=== PATIENT | male | born 1935 | race Caucasian/White ===

== ENCOUNTER 2016-06-17 09:14 | Inpatient (IN) | payer MEDICARE, OTHER ==
[2016-06-17 10:44] LABS: Basophils % (A) 0 %; CH 29.6; Eosinophils # (A) 0.1 k/uL (0-0.7); Eosinophils % (A) 1 %; HDW 2.38; HGB 12.5 gm/dL (13.0-17.5); Luc # (Auto) 0.12; Luc % (Auto) 1; Lymphocytes # (A) 0.5 k/uL (1.0-4.8); Lymphocytes % (A) 5 %; MCH 31.3 pg (25.0-35.0); MCHC 33.7 g/dL (31.0-37.0); Mean Platelet Volume 8.3; Monocytes # (A) 0.5 k/uL (0-1.0); Monocytes % (A) 6 %; Neutrophils % (A) 87 %; RBC 3.98 m/uL (4.30-5.90); WBC 9.2 k/uL (3.8-10.6); WBC (Perox) 9.54
--- NOTE | 2016-06-17 10:54 | XR ---
EXAMINATION TYPE: XR chest 2V DATE OF EXAM: 06/17/2016 10:46 AM COMPARISON: NONE INDICATION: None TECHNIQUE: Single frontal view of the chest is obtained. FINDINGS: The heart size is normal. The pulmonary vasculature is normal. The lungs are clear. A right central venous catheter is present with the tip in the proximal right atrium. EKG leads overl ie the chest IMPRESSION: 1. No acute pulmonary process. 2. No pneumothorax post line placement, tip is in the proximal right atrium.
[2016-06-17 10:55] LABS: ALT 43 U/L (21-72); AST 30 U/L (17-59); Alkaline Phosphatase 60 U/L (38-126); Anion Gap 11 mmol/L; Blood Urea Nitrogen 21 mg/dL (9-20); Calcium 8.3 mg/dL (8.4-10.2); Carbon Dioxide 25 mmol/L (22-30); Chloride 108 mmol/L (98-107); Glucose 104 mg/dL (74-99); Non-African American GFR(MDRD) 53 (>60 ml/min/1.73 sqM); Potassium 4.4 mmol/L (3.5-5.1); Sodium 144 mmol/L (137-145); Total Bilirubin 0.4 mg/dL (0.2-1.3); Total Protein 5.1 g/dL (6.3-8.2)
[2016-06-17 11:00] LABS: INR 1.1 (<1.1); Partial Thromboplastin Time 23.2 sec (22.0-30.0); Prothrombin Time 11.1 sec (9.0-12.0)
[2016-06-17 11:10] LABS: VBG PH 7.42 (7.31-7.41)
[2016-06-17 11:19] LABS: Creatine Kinase MB 2.4 ng/mL (0.0-2.4); Troponin I 0.013 ng/mL (0.000-0.034)
[2016-06-17] MEDS ORDERED: RX INFO: IV CONTRAST WAS GIVEN 1 EACH MISC MISCELLANE PRN (12:23)
[2016-06-17] MEDS ORDERED: OSELTAMIVIR 75 MG CAP PO STA (13:02)
--- NOTE | 2016-06-17 13:26 | CT ---
EXAMINATION TYPE: CT angio chest DATE OF EXAM: 06/17/2016 1:00 PM COMPARISON: NONE HISTORY: cough and congestion CT DLP: 623.5 mGycm Automated exposure control for dose reduction was used. CONTRAST: CTA scan of the thorax is performed with IV Contrast, patient injected with 87 mL of Visipaque 320, p ulmonary embolism protocol. . FINDINGS: The lungs are clear. There is no significant axillary, mediastinal or hilar adenopathy. The contrast bolus is poor. There are no large pulmonary emboli. The aortic root is mildly prominent measuring 39 mm. At the level of the proximal arch, the aorta catalina sures 3.3 cm. At the level of the proximal descending thoracic aorta, the aorta measures 3.4 cm. At t he level of the aortic hiatus, the aorta measures 2.9 cm. There is no pleural or pericardial fluid. The heart is not enlarged. Within the abdomen, there is a low attenuating 6.7 cm mass arising in the upper pole of the right kid neys. This likely represents a cyst. No osseous destructive lesion is seen. IMPRESSION: 1. SUBOPTIMAL STUDY DEMONSTRATING NO LARGE PULMONARY EMBOLI. 2. THORACIC AORTIC ANEURYSM. 3. LARGE MASS ARISING FROM THE UPPER POLE OF THE RIGHT KIDNEY. THIS LIKELY REPRESENTS A CYST. THIS CO ULD BE CONFIRMED WITH ULTRASOUND.
--- NOTE | 2016-06-17 13:35 | ED ---
General Adult HPI - General Chief complaint: Recheck/Abnormal Lab/Rx Stated complaint: sent by [employer] Time Seen by Provider: 06/17/16 09:37 Source: patient Mode of arrival: ambulatory Limitations: no limitations - History of Present Illness Initial comments: Percent has been coughing quite hard for the last few days in his oxygen saturation was low today [facility] and they noticed that his oxygen saturation was low they sent him over here. While talking in detail he also reveals that he has a chest pain does not very high pain is only 1-2/10 chest pain gets worse with a deep breaths. Denies any fever no chills he does have a history of heart disease he had GA in the past denies any stents and CABG also has a history of TIAs - Related Data Home Medications Medication Instructions Recorded Confirmed Atorvastatin [Lipitor] 40 mg PO HS 06/17/16 06/17/16 Clopidogrel Bisulfate [Plavix] 75 mg PO DAILY 06/17/16 06/17/16 Fenofibrate Nanocrystallized 48 mg PO DAILY 06/17/16 06/17/16 [Fenofibrate] Furosemide [Lasix] 40 mg PO DAILY 06/17/16 06/17/16 Labetalol [Trandate] 200 mg PO BID 06/17/16 06/17/16 Levothyroxine Sodium [Synthroid] 100 mcg PO DAILY 06/17/16 06/17/16 Lisinopril [Zestril] 20 mg PO DAILY 06/17/16 06/17/16 Naproxen Sodium [Aleve] 440 mg PO DAILY PRN 06/17/16 06/17/16 Pantoprazole [Protonix] 40 mg PO DAILY 06/17/16 06/17/16 amLODIPine [Norvasc] 5 mg PO DAILY 06/17/16 06/17/16 predniSONE 20 mg PO DAILY 06/17/16 06/17/16 Allergies Allergy/AdvReac Type Severity Reaction Status Date / Time pneumococcal vaccine AdvReac Swelling Verified 06/17/16 09:59 Review of Systems ROS Statement: Those systems with pertinent positive or pertinent negative responses have been documented in the HPI. ROS Other: All systems not noted in ROS Statement are negative. Past Medical History Past Medical History: Cancer, COPD, CVA/TIA, Hearing Disorder / Deafness, Hyperlipidemia, Hypertension, Myocardial Infarction (GA), Thyroid Disorder Additional Past Medical History / Comment(s): lymphoma, hydrocephalus History of Any Multi-Drug Resistant Organisms: None Reported Past Surgical History: Hernia Repair Additional Past Surgical History / Comment(s): [employer] shunt Past Psychological History: No Psychological Hx Reported Smoking Status: Former smoker Past Alcohol Use History: Occasional Past Drug Use History: None Reported General Exam - General Exam Comments Initial Comments: General: The patient is awake and alert, in no distress, and does not appear acutely ill. Skin: Skin is warm and dry and no rashes or lesions are noted. Eye: Pupils are equal, round and reactive to light, extra-ocular movements are intact; there is normal conjunctiva bilaterally. Ears, nose, mouth and throat: There are moist mucous membranes and no oral lesions. Neck: The neck is supple, there is no tenderness or JVD. Cardiovascular: There is a regular rate and rhythm. No murmur, rub or gallop is appreciated. Respiratory: To auscultation bilateral, crackles at the bases Gastrointestinal: Soft, non-distended, non-tender abdomen without masses or organomegaly noted. There is no rebound or guarding present. Bowel sounds are unremarkable. Back: There is no tenderness to palpation in the midline. There is no obvious deformity. Musculoskeletal: Normal ROM, no tenderness, There is no pedal edema. There is no calf tenderness or swelling. No cords were appreciated. Neurological: CN II-XII intact, Cranial nerves III through XII are intact. There are no obvious motor or sensory deficits. Coordination appears grossly intact. Speech is normal. Psychiatric: Cooperative, appropriate mood & affect, normal judgment. Limitations: no limitations Course Vital Signs 06/17/16 06/17/16 06/17/16 09:18 11:10 12:30 Temperature 97.7 F Pulse Rate 76 83 65 Respiratory 20 18 18 Rate Blood Pressure 140/64 151/88 153/69 O2 Sat by Pulse 93 L 95 95 Oximetry 06/17/16 13:00 Temperature Pulse Rate 74 Respiratory 18 Rate Blood Pressure 153/69 O2 Sat by Pulse Oximetry EKG Findings - EKG Comments: EKG Findings:: EKG is normal sinus rhythm ventricular rate is 70 MD interval is 172 QRS duration is 86 QT/QTc is 432/466 review of this EKG did not reveal any ST elevation or ST depression Medical Decision Making - Lab Data Result diagrams: 06/17/16 09:40 06/17/16 09:40 Lab Results 06/17/16 06/17/16 06/17/16 Range/Units 09:40 09:40 09:40 WBC 9.2 (3.8-10.6) k/uL RBC 3.98 L (4.30-5.90) m/uL Hgb 12.5 L (13.0-17.5) gm/dL Hct 37.0 L (39.0-53.0) % MCV 93.0 (80.0-100.0) fL MCH 31.3 (25.0-35.0) pg MCHC 33.7 (31.0-37.0) g/dL RDW 14.0 (11.5-15.5) % Plt Count 218 (150-450) k/uL Neutrophils % 87 % Lymphocytes % 5 % Monocytes % 6 % Eosinophils % 1 % Basophils % 0 % Neutrophils # 8.0 H (1.3-7.7) k/uL Lymphocytes # 0.5 L (1.0-4.8) k/uL Monocytes # 0.5 (0-1.0) k/uL Eosinophils # 0.1 (0-0.7) k/uL Basophils # 0.0 (0-0.2) k/uL PT (9.0-12.0) sec INR (<1.1) APTT (22.0-30.0) sec VBG pH (7.31-7.41) VBG pCO2 (37-51) mmHg VBG HCO3 (24-28) mmol/L Sodium 144 (137-145) mmol/L Potassium 4.4 (3.5-5.1) mmol/L Chloride 108 H (98-107) mmol/L Carbon Dioxide 25 (22-30) mmol/L Anion Gap 11 mmol/L BUN 21 H (9-20) mg/dL Creatinine 1.30 H (0.66-1.25) mg/dL Est GFR (MDRD) Af Amer >60 (>60 ml/min/1.73 sqM) Est GFR (MDRD) Non-Af 53 (>60 ml/min/1.73 sqM) Glucose 104 H (74-99) mg/dL Calcium 8.3 L (8.4-10.2) mg/dL Total Bilirubin 0.4 (0.2-1.3) mg/dL AST 30 (17-59) U/L ALT 43 (21-72) U/L Alkaline Phosphatase 60 (38-126) U/L Total Creatine Kinase 219 H (55-170) U/L CK-MB (CK-2) 2.4 (0.0-2.4) ng/mL CK-MB (CK-2) Rel Index 1.1 Troponin I 0.013 (0.000-0.034) ng/mL NT-Pro-B Natriuret Pep pg/mL Total Protein 5.1 L (6.3-8.2) g/dL Albumin 3.1 L (3.5-5.0) g/dL Influenza Type A RNA (Not Detectd) Influenza Type B (PCR) (Not Detectd) 06/17/16 06/17/16 06/17/16 Range/Units 09:40 09:40 11:00 WBC (3.8-10.6) k/uL RBC (4.30-5.90) m/uL Hgb (13.0-17.5) gm/dL Hct (39.0-53.0) % MCV (80.0-100.0) fL MCH (25.0-35.0) pg MCHC (31.0-37.0) g/dL RDW (11.5-15.5) % Plt Count (150-450) k/uL Neutrophils % % Lymphocytes % % Monocytes % % Eosinophils % % Basophils % % Neutrophils # (1.3-7.7) k/uL Lymphocytes # (1.0-4.8) k/uL Monocytes # (0-1.0) k/uL Eosinophils # (0-0.7) k/uL Basophils # (0-0.2) k/uL PT 11.1 (9.0-12.0) sec INR 1.1 (<1.1) APTT 23.2 (22.0-30.0) sec VBG pH 7.42 H (7.31-7.41) VBG pCO2 40 (37-51) mmHg VBG HCO3 25 (24-28) mmol/L Sodium (137-145) mmol/L Potassium (3.5-5.1) mmol/L Chloride (98-107) mmol/L Carbon Dioxide (22-30) mmol/L Anion Gap mmol/L BUN (9-20) mg/dL Creatinine (0.66-1.25) mg/dL Est GFR (MDRD) Af Amer (>60 ml/min/1.73 sqM) Est GFR (MDRD) Non-Af (>60 ml/min/1.73 sqM) Glucose (74-99) mg/dL Calcium (8.4-10.2) mg/dL Total Bilirubin (0.2-1.3) mg/dL AST (17-59) U/L ALT (21-72) U/L Alkaline Phosphatase (38-126) U/L Total Creatine Kinase (55-170) U/L CK-MB (CK-2) (0.0-2.4) ng/mL CK-MB (CK-2) Rel Index Troponin I (0.000-0.034) ng/mL NT-Pro-B Natriuret Pep 2780 pg/mL Total Protein (6.3-8.2) g/dL Albumin (3.5-5.0) g/dL Influenza Type A RNA (Not Detectd) Influenza Type B (PCR) (Not Detectd) 06/17/16 Range/Units 12:26 WBC (3.8-10.6) k/uL RBC (4.30-5.90) m/uL Hgb (13.0-17.5) gm/dL Hct (39.0-53.0) % MCV (80.0-100.0) fL MCH (25.0-35.0) pg MCHC (31.0-37.0) g/dL RDW (11.5-15.5) % Plt Count (150-450) k/uL Neutrophils % % Lymphocytes % % Monocytes % % Eosinophils % % Basophils % % Neutrophils # (1.3-7.7) k/uL Lymphocytes # (1.0-4.8) k/uL Monocytes # (0-1.0) k/uL Eosinophils # (0-0.7) k/uL Basophils # (0-0.2) k/uL PT (9.0-12.0) sec INR (<1.1) APTT (22.0-30.0) sec VBG pH (7.31-7.41) VBG pCO2 (37-51) mmHg VBG HCO3 (24-28) mmol/L Sodium (137-145) mmol/L Potassium (3.5-5.1) mmol/L Chloride (98-107) mmol/L Carbon Dioxide (22-30) mmol/L Anion Gap mmol/L BUN (9-20) mg/dL Creatinine (0.66-1.25) mg/dL Est GFR (MDRD) Af Amer (>60 ml/min/1.73 sqM) Est GFR (MDRD) Non-Af (>60 ml/min/1.73 sqM) Glucose (74-99) mg/dL Calcium (8.4-10.2) mg/dL Total Bilirubin (0.2-1.3) mg/dL AST (17-59) U/L ALT (21-72) U/L Alkaline Phosphatase (38-126) U/L Total Creatine Kinase (55-170) U/L CK-MB (CK-2) (0.0-2.4) ng/mL CK-MB (CK-2) Rel Index Troponin I (0.000-0.034) ng/mL NT-Pro-B Natriuret Pep pg/mL Total Protein (6.3-8.2) g/dL Albumin (3.5-5.0) g/dL Influenza Type A RNA Detected H (Not Detectd) Influenza Type B (PCR) Not Detected (Not Detectd) Critical Care Time Total Critical Care Time: 45 Critical Care Time: Was sent in for the hypoxia, his of fluids positive also complaining about chest pain and CT angiogram was done to rule out any PE though she can't do his noticed a thoracic aortic aneurysm that slammed will hold off the heparinization she also has a renal mass considering his chest pain is hypoxia flu a month and admitted him with a cardiology consult under Dr. Ospina service for heparinization [facility] because of the thoracic aortic aneurysm Disposition Clinical Impression: Chest pain, Influenza, Hypoxia, Renal mass, Thoracic aortic aneurysm Disposition: ADMITTED IP TO THIS HOSP Condition: Fair
[2016-06-17] MEDS ORDERED: ONDANSETRON 4 MG/2 ML VIAL IVP PRN (13:39)
[2016-06-17] MEDS ORDERED: NALOXONE 0.4 MG/ML 1 ML VIAL IV PRN (13:39)
[2016-06-17] MEDS ORDERED: ACETAMINOPHEN TAB 325 MG TAB PO PRN (13:39)
[2016-06-17] MEDS ORDERED: NAPROXEN 250 MG TAB PO PRN (13:45)
[2016-06-17] MEDS ORDERED: IPRATROPIUM-ALBUTEROL 3 ML NEB INHALATION PRN (16:07)
[2016-06-17] MEDS: SODIUM CHLORIDE 0.9% 1,000 ML IV SCH (17:56)
[2016-06-17] MEDS: IPRATROPIUM-ALBUTEROL 3 ML NEB INHALATION SCH (21:09)
[2016-06-17] MEDS: BENZOCAINE/MENTHOL LOZENG 1 EACH LOZENGE MUCOUS MEM PRN (21:39)
[2016-06-17] MEDS: guaiFENesin SYRUP 100MG/5ML 200 MG/10 ML CUP PO PRN (21:39)
[2016-06-17] MEDS: OSELTAMIVIR 60 MG/10 ML ORAL SYRINGE PO SCH (21:40)
[2016-06-17] MEDS: ATORVASTATIN 40 MG TAB PO SCH (21:40)
[2016-06-17] MEDS: LABETALOL 200 MG TAB PO SCH (21:40)
[2016-06-17] MEDS: DOXYCYCLINE 50 MG CAP PO SCH (21:40)
--- NOTE | 2016-06-18 | HP ---
DATE OF ADMISSION: 06/17/2016 This is an 80 -year-old gentleman with history of COPD, remote history of smoking, came in with complaints of coughing and shortness of breath which started yesterday. All the time, most of the time, ( ) had a flu like illness, comes in with similar symptoms, seen in agent care, was found to have low oxygen saturations. Patient has audible wheezing on exam because of which patient came to the hospital and the patient was found to have ( ) infection. Patient is wheezing quite a bit which actually saturations going down and patient is tachypneic and excessively tachypneic on 3 L of oxygen. The patient denied any fever, chills. The patient complaining of ( ) like sputum production. Patient denied history of myocardial infarction in the past with stent to ( ) in the past. Patient has chest pain whenever he cough. Troponins are negative. EKG did not show any acute ST-T wave changes. Home medications: 1. Atorvastatin. 2. Plavix. 3. Fenofibrate. 4. Lasix. 5. Labetalol. 6. Levothyroxine. 7. Lisinopril. 8. Naproxen. 9. Pantoprazole. 10. Amlodipine. 11. ( ). ALLERGIES: PNEUMOCOCCAL VACCINE. REVIEW OF SYSTEMS: CONSTITUTIONAL: As described in history of present illness. HEENT: No recent visual problems or hearing problems. Denied any sore throat. CARDIOVASCULAR: No chest pain, orthopnea, PND, no palpitations, no syncope. PULMONARY: As described in history of present illness. GASTROINTESTINAL: No diarrhea, no nausea, no vomiting, no abdominal pain. Normoactive bowel sounds. NEUROLOGICAL: No headaches, no weakness, no numbness. HEMATOLOGICAL: Denies any bleeding or petechiae. GENITOURINARY: Denies any burning micturition, frequency, or urgency. MUSCULOSKELETAL/RHEUMATOLOGICAL: Denies any joint pain, swelling, or any muscle pain. ENDOCRINE: Denies any polyuria or polydipsia. The rest of the 14 point review of systems is negative. PAST MEDICAL HISTORY: Significant for lymphoma in the past, COPD, CVA/TIA, hyperlipidemia, hypertension, myocardial infarction, hypothyroidism, hernia repair in the past. SOCIAL HISTORY: Former smoker. Denied any alcohol abuse or any drug abuse. FAMILY HISTORY: Hypertension in the family. PHYSICAL EXAMINATION: VITAL SIGNS: Temperature 97.7, pulse of 65, respiratory rate 18, blood pressure ( ), saturating at 95% on 3 L O2 by nasal cannula. GENERAL: Patient is alert and oriented ( ). Does have audible wheezing. ( ). HEENT: Pupils are round and equally reacting to light. EOMI. No scleral icterus. No conjunctival pallor. Normocephalic, atraumatic. No pharyngeal erythema. No thyromegaly. CARDIOVASCULAR: S1 and S2 present. No murmurs, rubs, or gallops. PULMONARY: Significant expiratory wheezing. Decreased air entry into bilateral lung colvin. No crackles were appreciated. Rhonchorous breath sounds. ABDOMEN: Soft, nontender, nondistended, normoactive bowel sounds. No palpable organomegaly. MUSCULOSKELETAL: No joint swelling or deformity. EXTREMITIES: No cyanosis, clubbing, or pedal edema. NEUROLOGICAL: Gross neurological examination did not reveal any focal deficits. SKIN: No rashes. LABORATORY DATA: CBC/BMP significant for elevated chloride because of probably IV fluids and elevated BUN and creatinine. I do not have his baseline creatinine. His creatinine presently is 1.3. Anion gap of 11, first set of troponins 0.013, secondary set of troponins were ordered. ( ) 2780. The patient has influenza A positive. ASSESSMENT AND PLAN: 1. ( ) secondary to Influenza A, the patient will be started on IV fluids. Patient was started on Tamiflu. 2. Acute hypercapnic respiratory failure, probably secondary to chronic obstructive pulmonary disease exacerbation. The patient will be started on inhalation treatment. Because of significant wheezing, I have to start him on steroids. Although ( ) high dose of steroids are not beneficial and there may be harmful in influenza. Because of that reason, I will go ahead and start him on oral prednisone and inhalational treatments. 3. Hypertension. Continue his home medications. 4. History of cerebrovascular accident/ transient ischemic attack in the past. 5. Hyperlipidemia. 6. Hypothyroidism. For the above-mentioned chronic medical problems, I will go ahead and continue his home medications. The patient does have gastroesophageal reflux disease for which we will use Protonix and patient will be on systemic steroids as mentioned above.
[2016-06-18] MEDS: SODIUM CHLORIDE 0.9% 1,000 ML IV SCH ×2 (02:25→11:27)
[2016-06-18] MEDS: guaiFENesin SYRUP 100MG/5ML 200 MG/10 ML CUP PO PRN ×3 (03:51→16:48)
[2016-06-18] MEDS: LEVOTHYROXINE 100 MCG TAB PO SCH (05:39)
[2016-06-18 06:56] LABS: Basophils % (A) 0 %; CHCM 30.9; Eosinophils % (A) 1 %; HCT 34.2 % (39.0-53.0); HGB 10.6 gm/dL (13.0-17.5); Hypochromasia Slight; Luc # (Auto) 0.19; Luc % (Auto) 3; Lymphocytes # (A) 0.6 k/uL (1.0-4.8); Lymphocytes % (A) 10 %; MCH 30.2 pg (25.0-35.0); MCV 97.6 fL (80.0-100.0); Mean Platelet Volume 8.1; Monocytes # (A) 0.5 k/uL (0-1.0); Monocytes % (A) 7 %; Neutrophils # (A) 5.3 k/uL (1.3-7.7); Neutrophils % (A) 80 %; RDW 14.3 % (11.5-15.5); WBC 6.6 k/uL (3.8-10.6); WBC (Perox) 7.17
[2016-06-18 07:16] LABS: ALT 43 U/L (21-72); AST 31 U/L (17-59); Alkaline Phosphatase 44 U/L (38-126); Anion Gap 6 mmol/L; Blood Urea Nitrogen 22 mg/dL (9-20); Calcium 7.5 mg/dL (8.4-10.2); Carbon Dioxide 26 mmol/L (22-30); Chloride 107 mmol/L (98-107); Glucose 92 mg/dL (74-99); Non-African American GFR(MDRD) >60 (>60 ml/min/1.73 sqM); Potassium 4.5 mmol/L (3.5-5.1); Sodium 139 mmol/L (137-145); Total Bilirubin 0.4 mg/dL (0.2-1.3); Total Protein 4.3 g/dL (6.3-8.2)
[2016-06-18] MEDS: IPRATROPIUM-ALBUTEROL 3 ML NEB INHALATION SCH ×4 (08:31→19:33)
[2016-06-18] MEDS ORDERED: predniSONE 20 MG TAB PO SCH (09:00)
[2016-06-18] MEDS: predniSONE 20 MG TAB PO SCH (09:10)
[2016-06-18] MEDS: CLOPIDOGREL 75 MG TAB PO SCH (09:10)
[2016-06-18] MEDS: DOXYCYCLINE 50 MG CAP PO SCH ×2 (09:10→20:45)
[2016-06-18] MEDS: LABETALOL 200 MG TAB PO SCH ×2 (09:10→20:45)
[2016-06-18] MEDS: PANTOPRAZOLE 40 MG TABLET PO SCH (09:10)
[2016-06-18] MEDS: amLODIPine 5 MG TAB PO SCH (09:10)
[2016-06-18] MEDS: LISINOPRIL 20 MG TAB PO SCH (09:10)
[2016-06-18] MEDS: FUROSEMIDE 40 MG TAB PO SCH (09:10)
[2016-06-18] MEDS: OSELTAMIVIR 60 MG/10 ML ORAL SYRINGE PO SCH ×2 (09:11→20:48)
[2016-06-18] MEDS: FENOFIBRATE 54 MG TAB PO SCH (09:11)
--- NOTE | 2016-06-18 11:13 | P.CRDCN ---
History of Present Illness Consult date: 06/18/16 Reason for Consult (text): chest pain Chief complaint: cough History of present illness: This is a pleasant 80-year-old gentleman with a known history of TIA 3, COPD, hypertension, hyperlipidemia and prior ID. He follows with a health workers from out of town, patient lives mostly in [facility] however comes to stay with his daughter frequently. He presented to the emergency department after being seen on urgent care with complaints of a cough. Apparently at urgent care physician noticed lower extremity edema and a low oxygen saturation. Cardiology was asked to see the patient in consult due to complaints of chest discomfort. Patient was having chest discomfort with coughing only. Patient did undergo CT of the chest to rule out PE that showed no PE, but was positive for a thoracic aortic aneurysm and also showed a large mass on his right kidney that is likely related to assist. Laboratory values are significant for BUN 22 , creatinine 1.08, BNP 2780, troponin 0.013, 0.014 and 0.016. Patient has also been found to be positive for influenza A. On examination, patient is resting comfortably in bed with his daughter at the bedside. Says he's feeling quite a bit better today, coughing less. He is breathing better. Denies complaints of dizziness, palpitations or edema. Past Medical History Past Medical History: Cancer, COPD, CVA/TIA, Hearing Disorder / Deafness, Hyperlipidemia, Hypertension, Myocardial Infarction (ID), Thyroid Disorder Additional Past Medical History / Comment(s): Lymphoma diagnosed 05/2015 and has had 6 chemotherapy txs, hydrocephalus, TIAs x3, silent ID/EKG, hypothyroid, AKIAK bilaterally, bilateral cataracts. Last Myocardial Infarction Date:: unkn History of Any Multi-Drug Resistant Organisms: None Reported Past Surgical History: Hernia Repair Additional Past Surgical History / Comment(s): [employer] shunt, bilateral inguinal hernia repairs, colonoscopy-normal. Past Anesthesia/Blood Transfusion Reactions: No Reported Reaction Past Psychological History: No Psychological Hx Reported Additional Psychological History / Comment(s): Pt resides with his spouse. He is independent. Smoking Status: Former smoker Past Alcohol Use History: Occasional Additional Past Alcohol Use History / Comment(s): Pt states he started smoking in 1952 and quit 20 some yrs ago. Past Drug Use History: None Reported - Past Family History Father Family Medical History: Liver Disease Mother Family Medical History: Cancer Additional Family Medical History / Comment(s): Mother had uterine cancer with sx. She at the age of 89yrs. Medications and Allergies Home Medications Medication Instructions Recorded Confirmed Type Atorvastatin [Lipitor] 40 mg PO HS 06/17/16 06/17/16 History Clopidogrel Bisulfate [Plavix] 75 mg PO DAILY 06/17/16 06/17/16 History Fenofibrate Nanocrystallized 48 mg PO DAILY 06/17/16 06/17/16 History [Fenofibrate] Furosemide [Lasix] 40 mg PO DAILY 06/17/16 06/17/16 History Labetalol [Trandate] 200 mg PO BID 06/17/16 06/17/16 History Levothyroxine Sodium [Synthroid] 100 mcg PO DAILY 06/17/16 06/17/16 History Lisinopril [Zestril] 20 mg PO DAILY 06/17/16 06/17/16 History Naproxen Sodium [Aleve] 440 mg PO DAILY PRN 06/17/16 06/17/16 History Pantoprazole [Protonix] 40 mg PO DAILY 06/17/16 06/17/16 History amLODIPine [Norvasc] 5 mg PO DAILY 06/17/16 06/17/16 History predniSONE 20 mg PO DAILY 06/17/16 06/17/16 History Allergies Allergy/AdvReac Type Severity Reaction Status Date / Time pneumococcal vaccine AdvReac Swelling Verified 06/17/16 09:59 Physical Exam Vitals: Vital Signs Temp Pulse Pulse Resp BP BP Pulse Ox 06/18/16 08:45 72 06/18/16 08:32 72 95 06/18/16 08:00 97.9 F 58 L 24 142/65 96 06/18/16 04:00 97.6 F 70 22 133/73 96 06/18/16 00:00 97.3 F L 75 18 160/72 96 06/17/16 21:25 79 06/17/16 21:11 79 98 06/17/16 20:00 97.3 F L 77 22 167/74 95 06/17/16 16:08 75 22 06/17/16 16:07 97.3 F L 75 22 179/77 95 06/17/16 15:40 98 F 06/17/16 14:00 75 18 175/75 96 Intake and Output 06/17/16 06/18/16 06/18/16 22:59 06:59 14:59 Intake Total 240 600 240 Output Total 675 Balance 240 -75 240 Intake: Oral 240 600 240 Output: Urine 675 Other: Voiding Method Toilet Toilet Toilet # Voids 2 Weight 107.1 kg PHYSICAL EXAMINATION: HEENT: Head is atraumatic, normocephalic. Pupils equal, round. Neck is supple. There is no elevated jugular venous pressure. HEART EXAMINATION: Heart sounds regular, S1 and S2 normal. No murmur or gallop heard. CHEST EXAMINATION: Lungs reveal expiratory wheezing throughout. No chest wall tenderness is noted on palpation or with deep breathing. ABDOMEN: Soft, obese, nontender. Bowel sounds are heard. No organomegaly noted. EXTREMITIES: 2+ peripheral pulses with no evidence of peripheral edema and no calf tenderness noted. NEUROLOGIC patient is awake, alert and oriented x3. . Results 06/18/16 06:11 06/18/16 06:11 Cardiac Enzymes 06/17/16 06/17/16 06/18/16 Range/Units 16:11 21:04 06:11 AST 31 (17-59) U/L Troponin I 0.014 0.016 (0.000-0.034) ng/mL CBC 06/18/16 Range/Units 06:11 WBC 6.6 (3.8-10.6) k/uL RBC 3.50 L (4.30-5.90) m/uL Hgb 10.6 L (13.0-17.5) gm/dL Hct 34.2 L (39.0-53.0) % Plt Count 172 (150-450) k/uL Comprehensive Metabolic Panel 06/18/16 Range/Units 06:11 Sodium 139 (137-145) mmol/L Potassium 4.5 (3.5-5.1) mmol/L Chloride 107 (98-107) mmol/L Carbon Dioxide 26 (22-30) mmol/L BUN 22 H (9-20) mg/dL Creatinine 1.08 (0.66-1.25) mg/dL Glucose 92 (74-99) mg/dL Calcium 7.5 L (8.4-10.2) mg/dL AST 31 (17-59) U/L ALT 43 (21-72) U/L Alkaline Phosphatase 44 (38-126) U/L Total Protein 4.3 L (6.3-8.2) g/dL Albumin 2.4 L (3.5-5.0) g/dL Current Medications Generic Name Dose Route Start Last Admin Trade Name Freq PRN Reason Stop Dose Admin Acetaminophen 650 mg 06/17/16 13:39 Tylenol Tab PO Q6HR PRN Mild Pain or Fever > 100.5 Albuterol/Ipratropium 3 ml 06/17/16 16:07 Duoneb 0.5 Mg-3 Mg/3 Ml Soln INHALATION RT-QID PRN Shortness Of Breath Or Wheezing Albuterol/Ipratropium 3 ml 06/17/16 20:00 06/18/16 08:31 Duoneb 0.5 Mg-3 Mg/3 Ml Soln INHALATION 3 ml RT-QID ANA Administration Amlodipine Besylate 5 mg 06/18/16 09:00 06/18/16 09:10 Norvasc PO 5 mg DAILY ANA Administration Atorvastatin Calcium 40 mg 06/17/16 21:00 06/17/16 21:40 Lipitor PO 40 mg HS ANA Administration Benzocaine/Menthol 1 each 06/17/16 19:00 06/17/16 21:39 Cepacol Lozenge MUCOUS MEM 1 each Q4HR PRN Administration Cough Clopidogrel Bisulfate 75 mg 06/18/16 09:00 06/18/16 09:10 Plavix PO 75 mg DAILY ANA Administration Doxycycline Monohydrate 100 mg 06/17/16 21:00 06/18/16 09:10 Vibramycin PO 100 mg BID ANA Administration Fenofibrate 54 mg 06/18/16 09:00 06/18/16 09:11 Lofibra PO 54 mg DAILY ANA Administration Furosemide 40 mg 06/18/16 09:00 06/18/16 09:10 Lasix PO 40 mg DAILY ANA Administration Guaifenesin 200 mg 06/17/16 19:00 06/18/16 10:07 Robitussin PO 200 mg Q6H PRN Administration Cough Sodium Chloride 1,000 mls @ 100 mls/hr 06/17/16 16:15 06/18/16 02:25 Saline 0.9% IV Not Given .Q10H ANA Labetalol HCl 200 mg 06/17/16 21:00 06/18/16 09:10 Trandate PO 200 mg BID ANA Administration Levothyroxine Sodium 100 mcg 06/18/16 06:30 06/18/16 05:39 Synthroid PO 100 mcg DAILY@0630 ANA Administration Lisinopril 20 mg 06/18/16 09:00 06/18/16 09:10 Zestril PO 20 mg DAILY ANA Administration Miscellaneous Information 1 each 06/17/16 12:23 06/17/16 13:08 Rx Info: Iv Contrast Was Given MISCELLANE 06/19/16 12:23 1 each DAILY PRN Administration Per Protocol Naloxone HCl 0.2 mg 06/17/16 13:39 Narcan IV Q2M PRN Opioid Reversal Ondansetron HCl 4 mg 06/17/16 13:39 Zofran IVP Q8HR PRN Nausea And Vomiting Oseltamivir Phosphate 30 mg 06/17/16 21:00 06/18/16 09:11 Tamiflu PO 06/21/16 21:01 30 mg Q12HR ANA Administration Pantoprazole Sodium 40 mg 06/18/16 09:00 06/18/16 09:10 Protonix PO 40 mg DAILY ANA Administration Prednisone 40 mg 06/18/16 09:00 06/18/16 09:10 PO 40 mg DAILY ANA Administration Intake and Output 06/17/16 06/18/16 06/18/16 22:59 06:59 14:59 Intake Total 240 600 240 Output Total 675 Balance 240 -75 240 Intake: Oral 240 600 240 Output: Urine 675 Other: Voiding Method Toilet Toilet Toilet # Voids 2 Weight 107.1 kg 06/18/16 06:11 06/18/16 06:11 EKG Interpretations (text) Sinus rhythm with prior inferior infarct Assessment and Plan Plan: Assessment and plan #1 influenza A #2 COPD #3 chest pain, likely musculoskeletal secondary to cough #4 hypertension #5 hyperlipidemia #6 prior ID #7 thoracic aortic aneurysm noted on chest CTA, max diameter 3.9 cm From cardiology perspective, we will obtain a 2-D echo. We will continue to follow the patient provide further recommendations accordingly. [facility] note has been reviewed, I agree with a documented findings and plan of care. Patient was seen and examined.
[2016-06-18] MEDS: BENZOCAINE/MENTHOL LOZENG 1 EACH LOZENGE MUCOUS MEM PRN (11:26)
--- NOTE | 2016-06-18 13:42 | PN ---
Patient is an 80-year-old admitted for COPD exacerbation. Patient also has influenza positive. Patient is still wheezing quite a bit. Patient will require maybe a couple more days of hospitalization and patient will need outpatient sleep study. REVIEW OF SYSTEMS: CARDIOVASCULAR: No chest pain, no orthopnea, no PND, no palpitations. PULMONARY: Denied any shortness of breath. No cough or hemoptysis. GASTROINTESTINAL: No diarrhea, nausea or vomiting. No abdominal pain. Normoactive bowel sounds. NEUROLOGIC: No headaches, no weakness, no numbness. Medications were reviewed. PHYSICAL EXAMINATION: Temperature 97.0, pulse of 72, respiratory rate of 22, blood pressure is 133/64, saturating at 96% on 2 L of O2 by nasal cannula. GENERAL EXAMINATION: Alert and oriented x3. Patient appears to be much lesser than stated age. LUNG EXAMINATION: Significant expiratory wheezing was appreciated, continued decreased air entry into bilateral lung colvin, although respiratory distress appears to have improved compared to yesterday. HEENT: Pupils are round and equally reacting to light. EOMI. No scleral icterus. No conjunctival pallor. Normocephalic, atraumatic. No pharyngeal erythema. No thyromegaly. CARDIOVASCULAR: S1 and S2 present. No murmurs, rubs, or gallops. ABDOMEN: Soft, nontender, nondistended, normoactive bowel sounds. No palpable organomegaly. MUSCULOSKELETAL: No joint swelling or deformity. EXTREMITIES: No cyanosis, clubbing, or pedal edema. NEUROLOGICAL: Gross neurological examination did not reveal any focal deficits. SKIN: No rashes. LABORATORY DATA: CBC, CMP showed improvement in creatinine to 1.8, BUN to 22. Continue with IV fluids at this point of time. CK is minimally elevated. ASSESSMENT AND PLAN: 1. Sepsis secondary to influenza A. Continue with Tamiflu. Continue with IV fluids as mentioned above. 2. Acute hypercapnic respiratory failure secondary to chronic obstructive pulmonary disease exacerbation. Continue with systemic steroids, inhalational treatments. Taper down on the oxygen. 3. Hypertension. 4. Cerebrovascular accident in the past. 5. Hyperlipidemia. 6. Hypothyroidism For above-mentioned chronic medical problems, I will go ahead and continue his home medications.
--- NOTE | 2016-06-18 14:44 | P.CNPUL ---
History of Present Illness Consult date: 06/18/16 Reason for consult: COPD History of present illness: A pleasant 80-year-old male patient with known history of COPD and addition to previous history of TIA/CVA, coronary artery disease with previous ME, hypertension and hyperlipidemia who started developing some increased cough chest congestion and shortness of breath and wheezing typically of COPD exacerbation. He is an ex-smoker. He uses only albuterol rescue inhaler on as needed basis and he does not utilize any form of maintenance medications. Denies having any previous bouts of pneumonias or bronchitis. This is his first hospitalization for an acute COPD exacerbation. Note that during this current admission the patient also check positive for influenza A. He is currently in respiratory droplet isolation. He is receiving Tamiflu. Is receiving bronchodilators and systemic steroids. CT angios the chest was also done that showed a small thoracic aortic aneurysm that was essentially uncomplicated. The rest of the pulmonary findings on the CAT scan of the chest were essentially negative. There was no evidence of any pneumonia. No chest pain. Renal function is stable. BNP level is mildly elevated. Troponins are 0.013 respectively. He denies having any chest pain or pleurisy. No change in mental status. No other complaints otherwise for now. Review of Systems Full review of system was done and the positive findings are almost above in history of present illness Past Medical History Past Medical History: Cancer, COPD, CVA/TIA, Hearing Disorder / Deafness, Hyperlipidemia, Hypertension, Myocardial Infarction (ME), Thyroid Disorder Additional Past Medical History / Comment(s): COPD, Lymphoma diagnosed 05/2015 and has had 6 chemotherapy txs, hydrocephalus, TIAs x3, silent ME/EKG, hypothyroid, [place] bilaterally, bilateral cataracts. 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 Past Anesthesia/Blood Transfusion Reactions: No Reported Reaction Past Psychological History: No Psychological Hx Reported Additional Psychological History / Comment(s): Pt resides with his spouse. He is independent. Smoking Status: Former smoker Past Alcohol Use History: Occasional Additional Past Alcohol Use History / Comment(s): Pt states he started smoking in 1952 and quit 20 some yrs ago. Past Drug Use History: None Reported - Past Family History Father Family Medical History: Liver Disease Mother Family Medical History: Cancer Additional Family Medical History / Comment(s): Mother had uterine cancer with sx. She at the age of 89yrs. Medications and Allergies Home Medications Medication Instructions Recorded Confirmed Type Atorvastatin [Lipitor] 40 mg PO HS 06/17/16 06/17/16 History Clopidogrel Bisulfate [Plavix] 75 mg PO DAILY 06/17/16 06/17/16 History Fenofibrate Nanocrystallized 48 mg PO DAILY 06/17/16 06/17/16 History [Fenofibrate] Furosemide [Lasix] 40 mg PO DAILY 06/17/16 06/17/16 History Labetalol [Trandate] 200 mg PO BID 06/17/16 06/17/16 History Levothyroxine Sodium [Synthroid] 100 mcg PO DAILY 06/17/16 06/17/16 History Lisinopril [Zestril] 20 mg PO DAILY 06/17/16 06/17/16 History Naproxen Sodium [Aleve] 440 mg PO DAILY PRN 06/17/16 06/17/16 History Pantoprazole [Protonix] 40 mg PO DAILY 06/17/16 06/17/16 History amLODIPine [Norvasc] 5 mg PO DAILY 06/17/16 06/17/16 History predniSONE 20 mg PO DAILY 06/17/16 06/17/16 History Allergies Allergy/AdvReac Type Severity Reaction Status Date / Time pneumococcal vaccine AdvReac Swelling Verified 06/17/16 09:59 Physical Exam Vitals: Vital Signs Temp Pulse Pulse Resp BP Pulse Ox 06/18/16 11:38 64 22 06/18/16 11:37 97.0 F L 64 22 133/64 96 06/18/16 08:45 72 06/18/16 08:32 72 95 06/18/16 08:00 97.9 F 58 L 24 142/65 96 06/18/16 04:00 97.6 F 70 22 133/73 96 06/18/16 00:00 97.3 F L 75 18 160/72 96 06/17/16 21:25 79 06/17/16 21:11 79 98 06/17/16 20:00 97.3 F L 77 22 167/74 95 06/17/16 16:08 75 22 06/17/16 16:07 97.3 F L 75 22 179/77 95 06/17/16 15:40 98 F Intake and Output 06/17/16 06/18/16 06/18/16 22:59 06:59 14:59 Intake Total 240 600 980 Output Total 675 450 Balance 240 -75 530 Intake: Intake, IV Titration 500 Amount Sodium Chloride 0.9% 1, 500 000 ml @ 100 mls/hr IV . Q10H ANA Rx#:[id number] Oral 240 600 480 Output: Urine 675 450 Other: Voiding Method Toilet Toilet Toilet # Voids 2 1 Weight 107.1 kg Head exam was generally normal. There was no scleral icterus or corneal arcus. Mucous membranes were moist.Neck was supple and without jugular venous distension, thyromegaly, or carotid bruits. Carotids were easily palpable bilaterally. There was no adenopathy. Lung sounds are diminished along with that there is diffuse extremity wheezes throughout the lung colvin bilaterally.Cardiac exam revealed the PMI to be normally situated and sized. The rhythm was regular and no extrasystoles were noted during several minutes of auscultation. The first and second heart sounds were normal and physiologic splitting of the second heart sound was noted. There were no murmurs, rubs, clicks, or gallops. Abdominal exam revealed normal bowel sounds. The abdomen was soft, non-tender, and without masses, organomegaly, or appreciable enlargement of the abdominal aorta.Examination of the extremities revealed easily palpable radial, femoral and pedal pulses. There was no cyanosis, clubbing or edema. Results - Laboratory Findings CBC and BMP: 06/18/16 06:11 06/18/16 06:11 PT/INR, D-dimer PT 11.1 sec (9.0-12.0) 06/17/16 09:40 INR 1.1 (<1.1) 06/17/16 09:40 Abnormal lab findings: Abnormal Labs 06/18/16 06/18/16 06:11 06:11 RBC 3.50 L Hgb 10.6 L Hct 34.2 L Lymphocytes # 0.6 L BUN 22 H Calcium 7.5 L Total Protein 4.3 L Albumin 2.4 L - Diagnostic Findings Chest x-ray: image reviewed Assessment and Plan Plan: Assessment 1 acute COPD exacerbation secondary to a influenza a tracheal bronchitis 2 small thoracic aortic aneurysm 3 coronary artery disease with previous myocardial infarction, currently having minor troponin leak, nonspecific 4 CVA/TIA 5 hypothyroidism 6 hypertension 7 obesity. 8 impaired hearing 9 Remote history of lymphoma status post systemic chemotherapy with adequate response and remission Plan Agree on the current treatment. Continue bronchodilators. Continue systemic steroids. Continue the Tamiflu. Clinically improved although there is may need to treat this patient for another 24 hours to optimize his COPD further. We'll continue to follow.
[2016-06-18] MEDS: ATORVASTATIN 40 MG TAB PO SCH (20:45)
[2016-06-19] MEDS: guaiFENesin SYRUP 100MG/5ML 200 MG/10 ML CUP PO PRN (03:34)
[2016-06-19] MEDS: LEVOTHYROXINE 100 MCG TAB PO SCH (06:38)
[2016-06-19] MEDS: IPRATROPIUM-ALBUTEROL 3 ML NEB INHALATION SCH ×4 (08:55→19:35)
[2016-06-19] MEDS: amLODIPine 5 MG TAB PO SCH (09:11)
[2016-06-19] MEDS: predniSONE 20 MG TAB PO SCH (09:11)
[2016-06-19] MEDS: LABETALOL 200 MG TAB PO SCH ×2 (09:12→20:54)
[2016-06-19] MEDS: LISINOPRIL 20 MG TAB PO SCH (09:12)
[2016-06-19] MEDS: FENOFIBRATE 54 MG TAB PO SCH (09:12)
[2016-06-19] MEDS: CLOPIDOGREL 75 MG TAB PO SCH (09:12)
[2016-06-19] MEDS: FUROSEMIDE 40 MG TAB PO SCH (09:12)
[2016-06-19] MEDS: DOXYCYCLINE 50 MG CAP PO SCH ×2 (09:12→20:54)
[2016-06-19] MEDS: PANTOPRAZOLE 40 MG TABLET PO SCH (09:13)
--- NOTE | 2016-06-19 09:46 | ECHOF ---
Referral Reason:chest pain MEASUREMENTS -------- HEIGHT: 175.3 cm WEIGHT: 107.0 kg BP: RVIDd: 3.6 cm (< 3.3) IVSd: 1.1 cm (0.6 - 1.1) LVIDd: 6.3 cm (3.9 - 5.3) LVPWd: 1.3 cm (0.6 - 1.1) IVSs: 1.5 cm LVIDs: 4.5 cm LVPWs: 1.4 cm LA Diam: 4.1 cm (2.7 - 3.8) Ao Diam: 3.5 cm (2.0 - 3.7) AV Cusp: 2.1 cm (1.5 - 2.6) LA Diam: 4.7 cm (2.7 - 3.8) MV EXCURSION: 29.675 mm (> 18.000) MV EF SLOPE: 119 mm/s (70 - 150) EPSS: 2.1 cm MV E Anthony: 1.08 m/s MV DecT: 270 ms MV A Anthony: 0.99 m/s MV E/A Ratio: 1.10 FINDINGS -------- Sinus rhythm. This was a technically adequate study. Left ventricular wall thickness is normal. Overall left ventricular systolic function is mildly impaired with, an EF between 45 - 50 %. The right ventricle is normal in size. The left atrial size is normal. The right atrial size is normal. There is mild aortic valve sclerosis. There is no evidence of aortic regurgitation. Mild mitral annular calcification present. Mild mitral regurgitation is present. Mild tricuspid regurgitation present. There is no evidence of pulmonary hypertension. The right ventricular systolic pressure, as measured by Doppler, is {RVSP}. There is no pulmonic regurgitation present. The aortic root size is normal. There is no pericardial effusion. CONCLUSIONS -------- 1. Left ventricular wall thickness is normal. 2. Overall left ventricular systolic function is mildly impaired with, an EF between 45 - 50 %. 3. There is mild aortic valve sclerosis. 4. Mild mitral annular calcification present. 5. Mild mitral regurgitation is present. 6. Mild tricuspid regurgitation present. 7. There is no evidence of pulmonary hypertension. 8. The right ventricular systolic pressure, as measured by Doppler, is {RVSP}. DIRECTOR OF NEUROLOGY: Gerda Kaufman RDCS
[2016-06-19] MEDS: OSELTAMIVIR 60 MG/10 ML ORAL SYRINGE PO SCH ×2 (10:09→22:03)
--- NOTE | 2016-06-19 13:33 | P.PN ---
Subjective A pleasant 80-year-old male patient with known history of COPD and addition to previous history of TIA/CVA, coronary artery disease with previous CA, hypertension and hyperlipidemia who started developing some increased cough chest congestion and shortness of breath and wheezing typically of COPD exacerbation. He is an ex-smoker. He uses only albuterol rescue inhaler on as needed basis and he does not utilize any form of maintenance medications. Denies having any previous bouts of pneumonias or bronchitis. This is his first hospitalization for an acute COPD exacerbation. Note that during this current admission the patient also check positive for influenza A. He is currently in respiratory droplet isolation. He is receiving Tamiflu. Is receiving bronchodilators and systemic steroids. CT angios the chest was also done that showed a small thoracic aortic aneurysm that was essentially uncomplicated. The rest of the pulmonary findings on the CAT scan of the chest were essentially negative. There was no evidence of any pneumonia. No chest pain. Renal function is stable. BNP level is mildly elevated. Troponins are 0.013 respectively. He denies having any chest pain or pleurisy. No change in mental status. No other complaints otherwise for now. The patient is seen again today 06/19/2016 in follow-up on the selective care unit. He is awake and alert in no acute distress. He denies any worsening shortness of breath, cough or congestion. He is maintaining good O2 saturations on room air. He is afebrile. No leukocytosis. He is anxious to go home. Objective - Vital Signs Vital signs: Vital Signs Temp 97.4 F L 06/19/16 08:00 Pulse 76 06/19/16 12:52 Resp 19 06/19/16 12:00 BP 147/70 06/19/16 12:00 Pulse Ox 96 06/19/16 13:16 Intake & Output 06/18/16 06/19/16 06/19/16 18:59 06:59 18:59 Intake Total 1220 160 236 Output Total 450 Balance 770 160 236 Weight 106.7 kg Intake: Intake, IV Titration 500 Amount Sodium Chloride 0.9% 1, 500 000 ml @ 100 mls/hr IV . Q10H ANA Rx#:[id number] Oral 720 160 236 Output: Urine 450 Other: Voiding Method Toilet Toilet # Voids 1 1 - Exam Head exam was generally normal. There was no scleral icterus or corneal arcus. Mucous membranes were moist.Neck was supple and without jugular venous distension, thyromegaly, or carotid bruits. Carotids were easily palpable bilaterally. There was no adenopathy. Lung sounds are diminished along with that there is diffuse extremity wheezes throughout the lung colvin bilaterally.Cardiac exam revealed the PMI to be normally situated and sized. The rhythm was regular and no extrasystoles were noted during several minutes of auscultation. The first and second heart sounds were normal and physiologic splitting of the second heart sound was noted. There were no murmurs, rubs, clicks, or gallops. Abdominal exam revealed normal bowel sounds. The abdomen was soft, non-tender, and without masses, organomegaly, or appreciable enlargement of the abdominal aorta.Examination of the extremities revealed easily palpable radial, femoral and pedal pulses. There was no cyanosis, clubbing or edema. - Labs CBC & Chem 7: 06/18/16 06:11 06/18/16 06:11 Assessment and Plan Plan: Assessment 1 acute COPD exacerbation secondary to a influenza a tracheal bronchitis 2 small thoracic aortic aneurysm 3 coronary artery disease with previous myocardial infarction, currently having minor troponin leak, nonspecific 4 CVA/TIA 5 hypothyroidism 6 hypertension 7 obesity. 8 impaired hearing 9 Remote history of lymphoma status post systemic chemotherapy with adequate response and remission Plan The patient was seen and evaluated by Dr. Jon. He is cleared for discharge from the pulmonary standpoint. We will continue his prednisone taper , completed his course of antibiotics, complete his course of Tamiflu. A follow -up in our office in 1-2 weeks in follow-up. He is encouraged to call sooner with any recurrence of symptoms or any other questions or concerns.
--- NOTE | 2016-06-19 16:20 | PN ---
DATE OF SERVICE: 06/19/2016 INTERVAL HISTORY: Mr. Jacome is an 80-year-old male with a past medical history of hypertension, hyperlipidemia, hypothyroidism, stroke in the past, coming into the hospital with a chief complaint of difficulty in breathing. Patient was tested positive for influenza and he is currently being treated with Tamiflu and he is also on steroids and breathing treatments due to exacerbation of his COPD. The patient is sitting up in a chair, beside his bed, appears to be in no acute distress. He does not have any active complaints. He states his breathing has been better compared to a couple of days. REVIEW OF SYSTEMS: CONSTITUTIONAL: No fevers, chills or rigors. RESPIRATORY; Difficulty in breathing is improving. CARDIAC: No chest pain or palpitations. GI: No abdominal pain, nausea, vomiting diarrhea. : No dysuria or hematuria. Patient's medications have been reviewed. On examination, patient's vital signs, temperature is 97.4, heart rate of 72, respiratory rate is 19, blood pressure 147/70, saturating at 96% on 2 L of nasal cannula. GENERAL EXAMINATION: Patient appears to be in no acute distress. HEAD: Atraumatic, normocephalic. EYES: Pupils, round, and reactive to light. NECK: No JVD. No thyromegaly. LUNGS: The patient has bilateral expiratory wheeze and also coarse breath sounds all through. He is currently getting a breathing treatment. CARDIOVASCULAR: S1, S2 heard. ABDOMEN: Soft, nontender. Bowel sounds positive. No organomegaly. MUSCULOSKELETAL: No joint swelling or deformity. EXTREMITIES: No cyanosis, no clubbing, no edema. NEUROLOGICAL: SECURITY CHECKER alert, awake, oriented x3. The patient is hard of hearing. PSYCHIATRIC HISTORY: Appropriate mood and affect. SKIN: No rashes. Patient's labs from yesterday white count is 6.6, hemoglobin 10.6, platelets of 172. Sodium 139, potassium 4.5, chloride 107, bicarb 26, BUN 22, creatinine 1.08. Total protein of 4.3. Albumin is 2.4. Influenza A is positive. ASSESSMENT AND PLAN: 1. Sepsis secondary to influenza A, continue with Tamiflu, continue with IV fluids. 2. Acute hypercapnic respiratory failure secondary to chronic obstructive pulmonary disease exacerbation due to influenza A. Continue with steroids, breathing treatments. 3. Hypertension. 4. Cerebrovascular accident in the past. 5. Hyperlipidemia. 6. Hypothyroidism. 7. Moderate protein calorie malnutrition. PLAN: The patient is to continue on Tamiflu daily, breathing treatments and steroids. Patient is wheezing slightly and also has coarse breath sounds. We will continue with the current medication regimen. Anticipate discharge in the next 24 hours. Further recommendations depending on the progress of the patient.
[2016-06-19] MEDS: ATORVASTATIN 40 MG TAB PO SCH (20:54)
[2016-06-20 06:12] LABS: Basophils % (A) 0 %; CH 29.9; CHCM 31.8; Eosinophils % (A) 0 %; HCT 35.4 % (39.0-53.0); HDW 2.49; HGB 11.1 gm/dL (13.0-17.5); Luc # (Auto) 0.16; Luc % (Auto) 3; Lymphocytes # (A) 0.5 k/uL (1.0-4.8); Lymphocytes % (A) 11 %; MCH 29.7 pg (25.0-35.0); MCHC 31.5 g/dL (31.0-37.0); MCV 94.6 fL (80.0-100.0); Monocytes # (A) 0.4 k/uL (0-1.0); Monocytes % (A) 7 %; Neutrophils % (A) 79 %; RBC 3.75 m/uL (4.30-5.90); RDW 14.2 % (11.5-15.5); WBC 5.1 k/uL (3.8-10.6); WBC (Perox) 5.29
[2016-06-20] MEDS: LEVOTHYROXINE 100 MCG TAB PO SCH (06:21)
[2016-06-20 06:25] LABS: Anion Gap 8 mmol/L; Blood Urea Nitrogen 28 mg/dL (9-20); Calcium 8.3 mg/dL (8.4-10.2); Carbon Dioxide 25 mmol/L (22-30); Chloride 103 mmol/L (98-107); Glucose 90 mg/dL (74-99); Magnesium 1.7 mg/dL (1.6-2.3); Non-African American GFR(MDRD) >60 (>60 ml/min/1.73 sqM); Sodium 136 mmol/L (137-145)
[2016-06-20] MEDS ORDERED: MAGNESIUM SULFATE-D5W PMX 1 GM in DEXTROSE/WATER 1 100ML.BAG IVPB ONE (06:46)
[2016-06-20] MEDS: OSELTAMIVIR 60 MG/10 ML ORAL SYRINGE PO SCH ×2 (07:39→20:28)
[2016-06-20] MEDS: METOPROLOL TARTRATE 25 MG TAB PO SCH ×3 (07:51→19:57)
[2016-06-20] MEDS: DOXYCYCLINE 50 MG CAP PO SCH ×2 (07:52→19:57)
[2016-06-20] MEDS: LISINOPRIL 20 MG TAB PO SCH (07:52)
[2016-06-20] MEDS: predniSONE 20 MG TAB PO SCH (07:52)
[2016-06-20] MEDS: FUROSEMIDE 40 MG TAB PO SCH (07:52)
[2016-06-20] MEDS: amLODIPine 5 MG TAB PO SCH (07:53)
[2016-06-20] MEDS: CLOPIDOGREL 75 MG TAB PO SCH (07:53)
[2016-06-20] MEDS: FENOFIBRATE 54 MG TAB PO SCH (07:53)
[2016-06-20] MEDS: PANTOPRAZOLE 40 MG TABLET PO SCH (07:53)
[2016-06-20] MEDS: IPRATROPIUM-ALBUTEROL 3 ML NEB INHALATION SCH ×3 (08:30→16:08)
--- NOTE | 2016-06-20 15:05 | PN ---
Mr. Jacome is a gentleman, had a run of wide QRS tachycardia, seemed like accelerated junctional rhythm. However, this morning he is feeling better. He has influenza, hypoxia, but overall he is stable. Ejection fraction 45% range. His magnesium level was low. I am recommending that we supplement magnesium, switch him labetalol to Lopressor, increase activity, and he can be discharged today on these medications after supplementation of magnesium. Vital signs are stable. S1 and S2 heard normally. Lungs reveal scattered rhonchi but improved air entry. Abdomen and lower extremity exam otherwise is unchanged.
--- NOTE | 2016-06-20 15:12 | P.PN ---
Subjective A pleasant 80-year-old male patient with known history of COPD and addition to previous history of TIA/CVA, coronary artery disease with previous PA, hypertension and hyperlipidemia who started developing some increased cough chest congestion and shortness of breath and wheezing typically of COPD exacerbation. He is an ex-smoker. He uses only albuterol rescue inhaler on as needed basis and he does not utilize any form of maintenance medications. Denies having any previous bouts of pneumonias or bronchitis. This is his first hospitalization for an acute COPD exacerbation. Note that during this current admission the patient also check positive for influenza A. He is currently in respiratory droplet isolation. He is receiving Tamiflu. Is receiving bronchodilators and systemic steroids. CT angios the chest was also done that showed a small thoracic aortic aneurysm that was essentially uncomplicated. The rest of the pulmonary findings on the CAT scan of the chest were essentially negative. There was no evidence of any pneumonia. No chest pain. Renal function is stable. BNP level is mildly elevated. Troponins are 0.013 respectively. He denies having any chest pain or pleurisy. No change in mental status. No other complaints otherwise for now. The patient is seen again today 06/19/2016 in follow-up on the selective care unit. He is awake and alert in no acute distress. He denies any worsening shortness of breath, cough or congestion. He is maintaining good O2 saturations on room air. He is afebrile. No leukocytosis. He is anxious to go home. On 06/20/2016 the patient is being seen in follow-up. She is not having any major stroke difficulties. He is less short of breath. He is ambulating. No significant cough chest tightness or wheezing. His condition is improved significantly. No other significant events over the past 24 hours and the patient is more stable for now. Objective - Vital Signs Vital signs: Vital Signs Temp 97 F L 06/20/16 09:19 Pulse 54 L 06/20/16 12:00 Resp 18 06/20/16 12:00 BP 162/69 06/20/16 12:00 Pulse Ox 95 06/20/16 12:00 Intake & Output 06/19/16 06/20/16 06/20/16 18:59 06:59 18:59 Intake Total 776 250 280 Output Total 400 1250 Balance 376 250 -970 Weight 107.2 kg Intake: Intake, IV Titration 100 Amount Magnesium Sulfate-D5w Pmx 100 1 gm In Dextrose/Water 1 100ml.bag @ 100 mls/hr IVPB ONCE ONE Rx#: [id number] Oral 776 250 180 Output: Urine 400 1250 Other: Voiding Method Toilet # Voids 1 1 - Exam Head exam was generally normal. There was no scleral icterus or corneal arcus. Mucous membranes were moist.Neck was supple and without jugular venous distension, thyromegaly, or carotid bruits. Carotids were easily palpable bilaterally. There was no adenopathy. Lung sounds are diminished along with that there is diffuse extremity wheezes throughout the lung colvin bilaterally.Cardiac exam revealed the PMI to be normally situated and sized. The rhythm was regular and no extrasystoles were noted during several minutes of auscultation. The first and second heart sounds were normal and physiologic splitting of the second heart sound was noted. There were no murmurs, rubs, clicks, or gallops. Abdominal exam revealed normal bowel sounds. The abdomen was soft, non-tender, and without masses, organomegaly, or appreciable enlargement of the abdominal aorta.Examination of the extremities revealed easily palpable radial, femoral and pedal pulses. There was no cyanosis, clubbing or edema. - Labs CBC & Chem 7: 06/20/16 05:57 06/20/16 05:57 Labs: Abnormal Lab Results - Last 24 Hours (Table) 06/20/16 06/20/16 Range/Units 05:57 05:57 RBC 3.75 L (4.30-5.90) m/uL Hgb 11.1 L (13.0-17.5) gm/dL Hct 35.4 L (39.0-53.0) % Lymphocytes # 0.5 L (1.0-4.8) k/uL Sodium 136 L (137-145) mmol/L BUN 28 H (9-20) mg/dL Calcium 8.3 L (8.4-10.2) mg/dL Assessment and Plan Plan: Assessment 1 acute COPD exacerbation secondary to a influenza a tracheal bronchitis 2 small thoracic aortic aneurysm 3 coronary artery disease with previous myocardial infarction, currently having minor troponin leak, nonspecific 4 CVA/TIA 5 hypothyroidism 6 hypertension 7 obesity. 8 impaired hearing 9 Remote history of lymphoma status post systemic chemotherapy with adequate response and remission Plan Agree on the current treatment. Continue bronchodilators. Clinically improving. We'll consider discharge either today was within the next 24 hours. The patient was already taken off the Solu-Medrol and he was started on a prednisone burst taper. He is completing a course of doxycycline and Tamiflu. No chills. No fever. No respiratory difficulties.
[2016-06-20 19:48] VITALS: BP 178/75; PULSE 55; RESP 22; TEMP 97
[2016-06-20] MEDS: ATORVASTATIN 40 MG TAB PO SCH (19:57)
--- NOTE | 2016-06-21 23:56 | DS ---
DATE OF ADMISSION: 06/17/2016 DATE OF DISCHARGE: 06/20/2016 HOSPITAL COURSE: Mr. Jacome is an 80-year-old male with a past medical history of hypertension, hyperlipidemia, hypothyroidism, stroke in the past. He was admitted to the hospital with the chief complaint of difficulty in breathing. Patient tested positive for influenza and is currently being treated with Tamiflu. He was initiated on Solu-Medrol; later on changed it to p.o. prednisone. His symptoms of difficulty with breathing getting better. He has been cleared by Cardiology and Pulmonary, who are also following the patient. HEART EXAMINATION: S1, S2 heard. LUNGS: Patient still has some coarse breath sounds and lower lung is more on the left side compared to the right side. Overall significant improvement compared to yesterday. PATIENT'S LABS AT THE TIME OF DISCHARGE: WBC 5.1, hemoglobin 11.1, platelets 242. Sodium 136, potassium 4, chloride 103, bicarb 24 , BUN 18, creatinine 1.10. DISCHARGE DIAGNOSES: 1. Sepsis secondary to influenza A. 2. Acute hypercapnic respiratory failure secondary to chronic obstructive pulmonary disease exacerbation due to influenza A. 3. Hypertension. 4. Cerebrovascular accident in the past. 5. Hyperlipidemia. 6. Hypothyroidism. 7. Moderate protein-calorie malnutrition. 8. Obesity with a body mass index of 34.9. PATIENT'S DISCHARGE MEDICATIONS: 1. Lipitor 40 mg p.o. at bedtime. 2. Plavix 75 mg p.o. daily. 3. Fenofibrate 48 mg p.o. daily. 4. Lasix 40 mg p.o. daily. 5. Levothyroxine 100 mcg p.o. daily. 6. Zestril 20 mg p.o. daily. 7. Naproxen 440 mg p.o. daily p.r.n. for pain. 8. Protonix 40 days p.o. daily. 9. Prednisone 40 mg for 4 days, 30 mg for 4 days, 20 mg for 4 days. 10. Doxycycline 100 mg b.i.d. for one day. 11. Tamiflu 30 mg p.o. b.i.d. for one day. 12. Metoprolol 25 mg p.o. 3 times a day. 13. Guaifenesin 200 mg 5 mL q.6 hours p.r.n. for cough. Patient's Lopressor has been discontinued. Activity as tolerated. Heart-healthy diet. The patient is advised to follow up with Pulmonary, Dr. Jon, within one week. It was explained to him that in case his difficulty in breathing gets worse or if he starts to have fever, he needs to seek medical attention. Patient is being discharged home in fair condition. More than 35 minutes spent towards the discharge of the patient. DENIS
== END 2016-06-20 21:06 | disposition home or self-care (01) | DRG 871 ==
LOC: EC 09:14 → 6SEL 13:45
PROVIDERS: ADMIT Hospitalist; ATTEND Hospitalist
DX: A41.89 Other specified sepsis (principal); J96.01 Acute respiratory failure with hypoxia; J96.02 Acute respiratory failure with hypercapnia; E44.0 Moderate protein-calorie malnutrition; J44.1 Chronic obstructive pulmonary disease with (acute) exacerbation; I71.2 Thoracic aortic aneurysm, without rupture; E03.9 Hypothyroidism, unspecified; J10.1 Influenza due to other identified influenza virus with other respiratory manifestations; E66.9 Obesity, unspecified; E78.5 Hyperlipidemia, unspecified; H91.90 Unspecified hearing loss, unspecified ear; I10 Essential (primary) hypertension; I25.10 Atherosclerotic heart disease of native coronary artery without angina pectoris; I25.2 Old myocardial infarction; K21.9 Gastro-esophageal reflux disease without esophagitis; Z68.34 Body mass index [BMI] 34.0-34.9, adult; Z79.02 Long term (current) use of antithrombotics/antiplatelets; Z79.899 Other long term (current) drug therapy; Z82.49 Family history of ischemic heart disease and other diseases of the circulatory system; Z85.72 Personal history of non-Hodgkin lymphomas; Z86.73 Personal history of transient ischemic attack (TIA), and cerebral infarction without residual deficits; Z87.891 Personal history of nicotine dependence; Z98.2 Presence of cerebrospinal fluid drainage device
CPT/HCPCS: 36415; 71020; 71275; 80048; 80053; 82550; 82553; 82803; 83735; 83880; 84484; 85025; 85610; 85730; 87502; 93005; 93306; 94640; 94760; 99291

== ENCOUNTER 2016-11-16 10:23 | Inpatient (IN) | payer MEDICARE, OTHER ==
[2016-11-16] MEDS ORDERED: SODIUM CHLORIDE 0.9% 1,000 ML IV STA (11:04)
[2016-11-16] MEDS ORDERED: RX INFO: IV CONTRAST WAS GIVEN 1 EACH MISC MISCELLANE PRN (11:04)
--- NOTE | 2016-11-16 11:09 | ED ---
Abdominal Pain HPI - General Chief Complaint: Abdominal Pain Stated Complaint: abd pain Time Seen by Provider: 11/16/16 10:53 Source: patient Mode of arrival: ambulatory Limitations: no limitations - History of Present Illness Initial Comments: This 81-year-old white male presents with a complaint of some abdominal pain. This is diffuse in nature and has been progressively worsening for the last 3 months. He denies any nausea, vomiting, diarrhea, constipation, or fevers. He does have some frequency of urination but this is normal for him. He denies any dysuria or urgency. He does relate a history of lymphoma which is in remission. His last PET scan was approximately one month ago and was negative. He was evaluated at urgent care today and had a urinalysis and x-ray and was sent to the ER. He has previously been seen at the urgent care for the same thing. He also followed up with his primary care physician and was referred to a plastic surgery assistant. His renal function apparently was off and they felt as though this was related to taking some Aleve. He stopped the Aleve and his kidney function normalized. He denies any other complaints or modifying factors. - Related Data Home Medications Medication Instructions Recorded Confirmed Atorvastatin [Lipitor] 40 mg PO HS 06/17/16 11/16/16 Clopidogrel Bisulfate [Plavix] 75 mg PO DAILY 06/17/16 11/16/16 Fenofibrate Nanocrystallized 48 mg PO DAILY 06/17/16 11/16/16 [Fenofibrate] Levothyroxine Sodium [Synthroid] 100 mcg PO DAILY 06/17/16 11/16/16 Pantoprazole [Protonix] 40 mg PO DAILY 06/17/16 11/16/16 amLODIPine [Norvasc] 10 mg PO DAILY 06/17/16 11/16/16 predniSONE 20 mg PO DAILY 06/17/16 11/16/16 Acetaminophen [Tylenol] 1,000 mg PO HS PRN 11/16/16 11/16/16 Allergies Allergy/AdvReac Type Severity Reaction Status Date / Time adhesive tape Allergy Rash/Hives Verified 11/16/16 11:34 pneumococcal vaccine AdvReac Swelling Verified 11/16/16 11:34 Review of Systems ROS Statement: Those systems with pertinent positive or pertinent negative responses have been documented in the HPI. ROS Other: All systems not noted in ROS Statement are negative. Past Medical History Past Medical History: Cancer, COPD, CVA/TIA, Hearing Disorder / Deafness, Hyperlipidemia, Hypertension, Myocardial Infarction (MD), Thyroid Disorder Additional Past Medical History / Comment(s): Lymphoma diagnosed 05/2015 and has had 6 chemotherapy txs, hydrocephalus, TIAs x3, silent MD/EKG, hypothyroid, [place] bilaterally, bilateral cataracts. Last Myocardial Infarction Date:: unkn History of Any Multi-Drug Resistant Organisms: None Reported Past Surgical History: Hernia Repair Additional Past Surgical History / Comment(s): MACHINE SKIVER shunt, bilateral inguinal hernia repairs, colonoscopy-normal. Past Anesthesia/Blood Transfusion Reactions: No Reported Reaction Past Psychological History: No Psychological Hx Reported Smoking Status: Former smoker Past Alcohol Use History: Occasional Past Drug Use History: None Reported - Past Family History Father Family Medical History: Liver Disease Mother Family Medical History: Cancer Additional Family Medical History / Comment(s): Mother had uterine cancer with sx. She at the age of 89yrs. General Exam - General Exam Comments Initial Comments: GENERAL: The patient is well nourished and well hydrated. VITAL SIGNS: Heart rate, blood pressure, respiratory rate reviewed as recorded in nurse's notes. EYES: Pupils are round and reactive. Extraocular movements are intact. No conjunctival / lid redness or swelling. ENT: No external evidence of injury, swelling, or ecchymosis. Airway is patent. Throat is clear. NECK: Nontender. No swelling or evidence of injury. No subcutaneous emphysema. Trachea is midline. No thyroid mass. HEART: Regular rate and rhythm. Good peripheral pulses. LUNGS/CHEST: Breath sounds clear and equal bilaterally. No rales, rhonchi, or wheezes. No ecchymosis, subcutaneous emphysema, or tenderness. ABDOMEN: There is some mild tenderness diffusely throughout the abdomen. No palpable masses or organomegaly. No peritoneal signs. There is a midline upper abdominal scar from previous MACHINE SKIVER shunt surgery. There may be a very slight ventral hernia noted. EXTREMITIES: No extremity tenderness. Normal muscle tone and function. No thoracolumbar tenderness. NEUROLOGIC: Sensation is grossly intact. Cranial nerve exam reveals face is symmetrical, tongue is midline, speech is clear. SKIN: No abrasions or ecchymosis is noted. No induration or masses noted. PSYCHIATRIC: Alert and oriented. Appropriate behavior and judgment. Limitations: no limitations Course Vital Signs 09/05/17 09/05/17 10:37 12:07 Temperature 98.0 F Pulse Rate 100 90 Respiratory 20 18 Rate Blood Pressure 135/61 152/71 O2 Sat by Pulse 98 95 Oximetry Medical Decision Making - Medical Decision Making The patient was seen and examined. All diagnostics were reviewed. He refuses any pain medications. An IV is started and he is mildly hydrated. The EKG shows a normal sinus rhythm at a rate of 98. There is no acute ST-T wave changes noted. An occasional premature atrial complexes noted. The MI interval is 164, QRS duration is 90, and QTc interval is 503. The laboratory is reviewed. This does show evidence of a leukocytosis as well as mild anemia and slight decrease in the CO2. The computed tomography scan of the abdomen and pelvis shows a small bowel abnormality. There is associated inflammation and they cannot rule out mass. There also is some lymphadenopathy. Please see report for details. The case is discussed with Dr. Kendrick and he recommends admission to medicine and he will consult. Since the patient does have a history of lymphoma he is also recommending an oncology consult. Patient's normal oncologist is out of the [place] area. The patient is agreeable to admission. - Lab Data Result diagrams: 11/16/16 11:37 11/16/16 11:37 Lab Results 11/16/16 11/16/16 11/16/16 Range/Units 11:37 11:37 11:37 WBC 16.7 H (3.8-10.6) k/uL RBC 4.22 L (4.30-5.90) m/uL Hgb 11.8 L (13.0-17.5) gm/dL Hct 36.5 L (39.0-53.0) % MCV 86.5 (80.0-100.0) fL MCH 27.9 (25.0-35.0) pg MCHC 32.2 (31.0-37.0) g/dL RDW 14.8 (11.5-15.5) % Plt Count 602 H (150-450) k/uL Neutrophils % 85 % Lymphocytes % 6 % Monocytes % 6 % Eosinophils % 1 % Basophils % 0 % Neutrophils # 14.1 H (1.3-7.7) k/uL Lymphocytes # 1.0 (1.0-4.8) k/uL Monocytes # 1.1 H (0-1.0) k/uL Eosinophils # 0.2 (0-0.7) k/uL Basophils # 0.0 (0-0.2) k/uL Hypochromasia Slight PT (9.0-12.0) sec INR (<1.2) APTT (22.0-30.0) sec Sodium 136 L (137-145) mmol/L Potassium 5.1 (3.5-5.1) mmol/L Chloride 105 (98-107) mmol/L Carbon Dioxide 21 L (22-30) mmol/L Anion Gap 10 mmol/L BUN 19 (9-20) mg/dL Creatinine 1.10 (0.66-1.25) mg/dL Est GFR (MDRD) Af Amer >60 (>60 ml/min/1.73 sqM) Est GFR (MDRD) Non-Af >60 (>60 ml/min/1.73 sqM) Glucose 116 H (74-99) mg/dL Plasma Lactic Acid Nas (0.7-2.0) mmol/L Calcium 9.2 (8.4-10.2) mg/dL Total Bilirubin 0.4 (0.2-1.3) mg/dL AST 16 L (17-59) U/L ALT 26 (21-72) U/L Alkaline Phosphatase 117 (38-126) U/L Total Protein 6.1 L (6.3-8.2) g/dL Albumin 3.5 (3.5-5.0) g/dL Amylase 53 (30-110) U/L Lipase 184 (23-300) U/L Urine Color Yellow Urine Appearance Clear (Clear) Urine pH 5.5 (5.0-8.0) Ur Specific [place] 1.018 (1.001-1.035) Urine Protein 1+ H (Negative) Urine Glucose (UA) Negative (Negative) Urine Ketones Negative (Negative) Urine Blood Negative (Negative) Urine Nitrite Negative (Negative) Urine Bilirubin Negative (Negative) Urine Urobilinogen <2.0 (<2.0) mg/dL Ur Leukocyte Esterase Negative (Negative) Urine WBC 2 (0-5) /hpf Ur Squamous Epith Cells <1 (0-4) /hpf Hyaline Casts 3 H (0-2) /lpf Urine Mucus Occasional H (None) /hpf 09/05/17 09/05/17 Range/Units 12:00 12:00 WBC (3.8-10.6) k/uL RBC (4.30-5.90) m/uL Hgb (13.0-17.5) gm/dL Hct (39.0-53.0) % MCV (80.0-100.0) fL MCH (25.0-35.0) pg MCHC (31.0-37.0) g/dL RDW (11.5-15.5) % Plt Count (150-450) k/uL Neutrophils % % Lymphocytes % % Monocytes % % Eosinophils % % Basophils % % Neutrophils # (1.3-7.7) k/uL Lymphocytes # (1.0-4.8) k/uL Monocytes # (0-1.0) k/uL Eosinophils # (0-0.7) k/uL Basophils # (0-0.2) k/uL Hypochromasia PT 11.5 (9.0-12.0) sec INR 1.2 H (<1.2) APTT 24.7 (22.0-30.0) sec Sodium (137-145) mmol/L Potassium (3.5-5.1) mmol/L Chloride (98-107) mmol/L Carbon Dioxide (22-30) mmol/L Anion Gap mmol/L BUN (9-20) mg/dL Creatinine (0.66-1.25) mg/dL Est GFR (MDRD) Af Amer (>60 ml/min/1.73 sqM) Est GFR (MDRD) Non-Af (>60 ml/min/1.73 sqM) Glucose (74-99) mg/dL Plasma Lactic Acid Nas 0.9 (0.7-2.0) mmol/L Calcium (8.4-10.2) mg/dL Total Bilirubin (0.2-1.3) mg/dL AST (17-59) U/L ALT (21-72) U/L Alkaline Phosphatase (38-126) U/L Total Protein (6.3-8.2) g/dL Albumin (3.5-5.0) g/dL Amylase (30-110) U/L Lipase (23-300) U/L Urine Color Urine Appearance (Clear) Urine pH (5.0-8.0) Ur Specific [place] (1.001-1.035) Urine Protein (Negative) Urine Glucose (UA) (Negative) Urine Ketones (Negative) Urine Blood (Negative) Urine Nitrite (Negative) Urine Bilirubin (Negative) Urine Urobilinogen (<2.0) mg/dL Ur Leukocyte Esterase (Negative) Urine WBC (0-5) /hpf Ur Squamous Epith Cells (0-4) /hpf Hyaline Casts (0-2) /lpf Urine Mucus (None) /hpf Disposition Clinical Impression: Abdominal pain, History of lymphoma, Colitis, Hypertension, Anemia, Leukocytosis Disposition: ADMITTED IP TO THIS HOSP Condition: Fair Referrals: Nonstaff,Physician [Primary Care Provider] - 1-2 days Time of Disposition: 13:49
[2016-11-16 11:51] LABS: Basophils % (A) 0 %; CH 27.3; CHCM 31.6; Eosinophils # (A) 0.2 k/uL (0-0.7); Eosinophils % (A) 1 %; HCT 36.5 % (39.0-53.0); HGB 11.8 gm/dL (13.0-17.5); Hypochromasia Slight; Luc # (Auto) 0.28; Luc % (Auto) 2; Lymphocytes % (A) 6 %; MCH 27.9 pg (25.0-35.0); MCHC 32.2 g/dL (31.0-37.0); MCV 86.5 fL (80.0-100.0); Mean Platelet Volume 7.4; Monocytes # (A) 1.1 k/uL (0-1.0); Monocytes % (A) 6 %; Neutrophils # (A) 14.1 k/uL (1.3-7.7); Neutrophils % (A) 85 %; RBC 4.22 m/uL (4.30-5.90); RDW 14.8 % (11.5-15.5); WBC 16.7 k/uL (3.8-10.6); WBC (Perox) 16.99
[2016-11-16 12:00] LABS: Appearance,Urine Clear (Clear); Bilirubin,Urine Negative (Negative); Glucose,Urine (UA) Negative (Negative); Ketones,Urine Negative (Negative); Leukocyte Esterase,Urine Negative (Negative); Mucus,Urine Occasional /hpf; Nitrite,Urine Negative (Negative); PH, Urine 5.5 (5.0-8.0); Particle Count 8908; Protein,Urine 1+ (Negative); Specific Gravity,Urine 1.018 (1.001-1.035); Squamous Epithelial Cell,Urine <1 /hpf (0-4); UA Billing (MACRO vs. MICRO) MICRO; Urobilinogen,Urine <2.0 mg/dL (<2.0); WBC,Urine 2 /hpf (0-5)
[2016-11-16 12:02] LABS: ALT 26 U/L (21-72); AST 16 U/L (17-59); Alkaline Phosphatase 117 U/L (38-126); Amylase 53 U/L (30-110); Anion Gap 10 mmol/L; Blood Urea Nitrogen 19 mg/dL (9-20); Calcium 9.2 mg/dL (8.4-10.2); Carbon Dioxide 21 mmol/L (22-30); Chloride 105 mmol/L (98-107); Glucose 116 mg/dL (74-99); Non-African American GFR(MDRD) >60 (>60 ml/min/1.73 sqM); Potassium 5.1 mmol/L (3.5-5.1); Sodium 136 mmol/L (137-145); Total Bilirubin 0.4 mg/dL (0.2-1.3); Total Protein 6.1 g/dL (6.3-8.2)
[2016-11-16 12:33] LABS: INR 1.2 (<1.2); Partial Thromboplastin Time 24.7 sec (22.0-30.0); Prothrombin Time 11.5 sec (9.0-12.0)
--- NOTE | 2016-11-16 12:52 | CT ---
EXAMINATION TYPE: CT abdomen pelvis w con DATE OF EXAM: 11/16/2016 COMPARISON: NONE INDICATION: Patient complains of epigastric pain. DLP: 1112.7 mGycm, Automated exposure control for dose reduction was used. CONTRAST: 100 mL of Omnipaque 300. Study performed without Oral Contrast TECHNIQUE: Axial images were obtained from above the diaphragm to the pubic rami in the axial plane a t 5 mm thick sections. Reconstructed images are reviewed on the computer in the coronal plane. FINDINGS: Limited CT sections are obtained the lung bases. The lung bases are clear. CT ABDOMEN: Liver: Normal Spleen: Normal Pancreas: Normal Adrenal glands: The adrenal glands are normal. Gallbladder: Normal Kidneys: No masses are evident. No hydronephrosis is present. There is a 7.2 cm cyst at the mid pos terior right kidney. Minimal amount of wall calcification is noted posteriorly. Additional cortical r enal cysts are present on the right measuring 0.8 cm at the inferior pole and measuring 0.8-0.9 cm in the mid superior pole. A posterior superior pole left renal cyst measuring 1.2 cm is present. Small cortical renal cysts are inferior medial left kidney measuring 1.1 cm. Aorta: Vascular calcification is within the aorta. There is some fusiform prominence of the distal a bdominal aorta with the AP diameter measuring 3.3 cm. Inferior vena cava: Normal. Transverse colon appears unremarkable. Ascending and descending colon within the [id number] are no rmal. In the epigastric region inferior to the pancreas appear to be centralized small bowel loops with inf lammatory change adjacent. A small amount of wall enhancement may be present on anterior loop of smal l bowel in this region. A discrete underlying mass is not identified. However, consider etiology such as carcinoid within the differential. Obstruction is not evident. Some lymphadenopathy may be presen t within this with central lower density. A periaortic node may be present measuring 2 cm. Retrocaval adenopathy is present. CT PELVIS: Urinary bladder is decompressed with limited evaluation. The prostate contains calcificati on. No free fluid is within the pelvis. The distal colon appears normal. Distal small bowel loops maddie ear normal. The appendix is unremarkable. IMPRESSIONS: 1. Conglomerated small bowel loops within the midabdomen with some adjacent inflammatory change. Enl arged adenopathy is suspected within this mass as well as in the periaortic and retrocaval regions. F indings are nonspecific. Consider carcinoid tumor within the differential. Lymphadenopathy from other etiologies such as lymphoma or metastasis should be considered. Additional workup is recommended. 2. Mild fusiform prominence distal abdominal aorta at the bifurcation.
[2016-11-16] MEDS ORDERED: metroNIDAZOLE-NS PMX 500 MG in SALINE 1 100ML.BAG IVPB STA (13:18)
[2016-11-16] MEDS ORDERED: LEVOFLOXACIN 750MG-D5W PMX 750 MG in DEXTROSE/WATER 1 150ML.BAG IVPB STA (13:18)
[2016-11-16] MEDS ORDERED: traMADol 50 MG TAB PO STA (13:23)
[2016-11-16] MEDS ORDERED: ACETAMINOPHEN TAB 325 MG TAB PO PRN (13:49)
[2016-11-16] MEDS ORDERED: ONDANSETRON 4 MG/2 ML VIAL IVP PRN (13:49)
[2016-11-16] MEDS ORDERED: NALOXONE 0.4 MG/ML 1 ML VIAL IV PRN (13:49)
[2016-11-16] MEDS ORDERED: HYDROmorphone 1 MG/ML 1 ML SYRINGE IV PRN (13:49)
[2016-11-16] MEDS: HYDROcodone/APAP 5-325MG 1 EACH TAB PO PRN ×3 (14:28→21:17)
[2016-11-16] MEDS ORDERED: ALPRAZolam 0.25 MG TAB PO PRN (17:45)
[2016-11-16] MEDS ORDERED: TEMAZEPAM 15 MG CAP PO PRN (17:45)
[2016-11-16] MEDS: ATORVASTATIN 40 MG TAB PO SCH (21:38)
--- NOTE | 2016-11-16 23:19 | HP ---
HISTORY AND PHYSICAL DATE OF SERVICE: 11/16/2016 CHIEF COMPLAINT: Abdominal pain. HISTORY OF PRESENT ILLNESS: This 81-year-old gentleman with a past medical history of multiple medical problems, including lymphoma, history of COPD, history of hypertension, hyperlipidemia, history of hydrocephalus being followed by primary physician as well in the outpatient setting is apparently complaining abdominal pain. The pain was mostly in the anterior part of the abdomen and the pain is worsening over the last 3 months. The patient also has frequency of , also. The patient was also being followed by Oncology every 3 to 4 months. The last PET scan was approximately 1 month ago and was negative. Because of increasing abdominal pain and difficulty, the patient came to [facility], admitted for further evaluation and treatment. A CT scan of abdomen and pelvis showed a conglomerate of small-bowel loops within the mid abdomen with some adjacent inflammatory changes and large adenopathy suspected in the periaortic and caval regions, also. Carcinoid tumor was considered as a differential diagnosis. Mild fusiform prominence of the distal abdomen was also noted as well. There is no history of any fever, rigors. No history of headache, loss of consciousness or seizures. PAST MEDICAL HISTORY: Lymphoma, history of COPD, history of hypertension, hyperlipidemia, myocardial infarction. MEDICATIONS PRIOR TO ADMISSION: Include: 1. Tylenol 1000 mg q.h.s. p.r.n. 2. Prednisone 20 mg daily. 3. Protonix 40 mg daily. 4. Synthroid 100 mcg p.o. daily. 5. Norvasc 10 mg daily. 6. Fenofibrate 48 mg. 7. Plavix 70 mg. 8. Lipitor 40 mg. ALLERGIES: ADHESIVE TAPES AND PNEUMOCOCCAL VACCINE. FAMILY HISTORY: History of liver disease. Mother had uterine cancer. SOCIAL HISTORY: Previous history of smoking. Occasional alcohol intake. REVIEW OF SYSTEMS: HEENT: Diminished hearing. No diminished vision. CARDIOVASCULAR: No angina, palpitations. RESPIRATORY: No cough. GI: As mentioned earlier. : No dysuria. NERVOUS: No numbness, weakness. ALLERGY/IMMUNOLOGY: No asthma, hay fever. MUSCULOSKELETAL: As mentioned earlier. HEMATOLOGY/ONCOLOGY: As mentioned earlier. ENDOCRINE: As mentioned earlier, hypothyroidism. CONSTITUTIONAL: As mentioned earlier. DERMATOLOGY: Negative. RHEUMATOLOGY: Negative. PSYCHIATRY: As mentioned earlier. PHYSICAL EXAMINATION: The patient alert and oriented x3. Pulse 90, blood pressure 152/71, respiration 18, temperature 98 degrees, pulse ox 95% room air. HEENT: Conjunctivae normal. Oral mucosa moist. NECK: No jugular venous distention. No carotid bruits. Obese. No lymph node enlargement. CARDIOVASCULAR: S1, S2 muffled. No S3. No S4. RESPIRATORY: Breath sounds diminished in the bases. A few scattered rhonchi. No crackles. ABDOMEN: Soft, obese. Incisional hernia present, status post surgery for insertion of ventriculoperitoneal shunt. Otherwise, mild diffuse discomfort. No guarding. No rigidity. No mass palpable. No tenderness. Bowel sounds present. No hepatosplenomegaly. No ascites. LEGS: No edema. No swelling. NERVOUS SYSTEM: Higher functions as mentioned earlier. Cranial nerves 2-12 grossly intact. Moves all 4 limbs. No focal motor or sensory deficits. LYMPHATIC: No lymph nodes palpable in neck, axillae or groins. SKIN: No ulcer, rash or bleeding. LABS: WBC 16.2, hemoglobin is 11.8, INR is 1.2. Sodium 136. ASSESSMENT: 1. Abdominal pain with possible lymphoma, rule out a recurrence and relapse. 2. Rule out carcinoid syndrome or metastasis. 3. History of lymphoma. 4. Hyponatremia. 5. Increased WBC. 6. Anemia of chronic disease. 7. History of cerebrovascular accident, transient ischemic attack. 8. Chronic obstructive pulmonary disease. 9. Hypertension. 10.Hyperlipidemia. 11.Hard of hearing. 12.History of hydrocephalus, status post ventriculoperitoneal shunt. 13.Remote history of nicotine dependence. 14.Obesity with a body mass index 35.5. RECOMMENDATIONS AND DISCUSSION: This 81-year-old gentleman presented with multiple complex medical issues. Will monitor the patient closely. Continue the current medications and symptomatic treatment. Otherwise at this time, I recommend to continue with the current medications. Continue with empiric antibiotics as initiated. I will recommend proton pump inhibitors and resume the home medications. Surgery as well as Hematology/Oncology will be consulted and further recommendations to follow. Discussed with the patient, who understands and agrees. CT scan of the abdomen and pelvis noted. Overall prognosis guarded. MMODL / IJN: [id number] / MTDD
[2016-11-16] MEDS: metroNIDAZOLE-NS PMX 500 MG in SALINE 1 100ML.BAG IVPB SCH (23:53)
[2016-11-17 00:05] VITALS: RESP 16
[2016-11-17] MEDS: LEVOTHYROXINE 100 MCG TAB PO SCH (07:39)
[2016-11-17 07:47] LABS: Anion Gap 7 mmol/L; Blood Urea Nitrogen 19 mg/dL (9-20); Calcium 8.6 mg/dL (8.4-10.2); Carbon Dioxide 25 mmol/L (22-30); Chloride 103 mmol/L (98-107); Glucose 122 mg/dL (74-99); Non-African American GFR(MDRD) >60 (>60 ml/min/1.73 sqM); Potassium 4.8 mmol/L (3.5-5.1); Sodium 135 mmol/L (137-145)
[2016-11-17 08:12] LABS: Basophils % (A) 0 %; CH 28.3; CHCM 32.4; Eosinophils % (A) 0 %; HCT 32.1 % (39.0-53.0); Luc # (Auto) 0.18; Luc % (Auto) 1; Lymphocytes # (A) 0.6 k/uL (1.0-4.8); Lymphocytes % (A) 5 %; MCH 27.4 pg (25.0-35.0); MCHC 31.1 g/dL (31.0-37.0); MCV 87.8 fL (80.0-100.0); Mean Platelet Volume 7.9; Monocytes # (A) 0.9 k/uL (0-1.0); Monocytes % (A) 7 %; Neutrophils # (A) 11.9 k/uL (1.3-7.7); Neutrophils % (A) 87 %; RBC 3.66 m/uL (4.30-5.90); RDW 15.5 % (11.5-15.5); WBC 13.7 k/uL (3.8-10.6); WBC (Perox) 14.36
[2016-11-17] MEDS: ENOXAPARIN 40 MG/0.4 ML SYRINGE SQ SCH (09:06)
[2016-11-17] MEDS: amLODIPine 10 MG TAB PO SCH (09:07)
[2016-11-17] MEDS: predniSONE 20 MG TAB PO SCH (09:07)
[2016-11-17] MEDS: PANTOPRAZOLE 40 MG/10 ML VIAL IV SCH (09:07)
[2016-11-17] MEDS: CLOPIDOGREL 75 MG TAB PO SCH (09:07)
[2016-11-17] MEDS: FENOFIBRATE 54 MG TAB PO SCH (09:09)
[2016-11-17] MEDS ORDERED: LEVOFLOXACIN 750MG-D5W PMX 750 MG in DEXTROSE/WATER 1 150ML.BAG IVPB SCH (13:00)
[2016-11-17] MEDS: metroNIDAZOLE-NS PMX 500 MG in SALINE 1 100ML.BAG IVPB SCH (13:03)
--- NOTE | 2016-11-17 14:06 | P.GSCN ---
<Court Neves - Last Filed: 11/17/16 14:07> History of Present Illness Consult date: 11/17/16 Reason for Consult: Abdominal pain History of present illness: This is an 81-year-old male who is being seen at the request of the attending for a surgical eval who presented to the emergency room with a chief complaint of having progressive diffuse abdominal pain. Patient stated that he had noted over the last several months to be experiencing abdominal pain across the abdominal wall he stated the symptoms became more symptomatic over the last several days. Patient describes it as a sharp dull achy sensation in the anterior part of the abdominal wall. Patient stated it seemed to get worse if he tried to take in a deep breath. Patient denied any change in bowel habits no constipation or loose stooling denies any urinary incontinence frequency urgency or hematuria Given the above clinical presentation patient did present to the emergency room to be evaluated for the above symptoms. A CAT scan of the abdomen pelvis was obtained it did show a conglomerate of small bowel loops within the midabdomen with adjacent inflammatory changes. A large adenopathy suspected in the periaortic region. Patient does give a history of lymphoma which he says is followed by an oncologist. Reportedly had a PET scan about a month ago and states it was negative he reports being in remission. Patient stated he did receive 6 treatments for his lymphoma. With the abdominal pain patient reported no nausea vomiting no decrease in appetite no change in bowel habits. Patient states he did have an EGD and a colonoscopy about a year ago and was told it was unremarkable currently patient states is a noted improvement in the abdominal discomfort since being admitted to the hospital. Past surgical history bilateral inguinal hernia VQ shunt projects fell as 12 years prior Review of Systems Essentially unremarkable except as mentioned in the present illness Past Medical History Past Medical History: Cancer, COPD, CVA/TIA, Hearing Disorder / Deafness, Hyperlipidemia, Hypertension, Myocardial Infarction ([place]), Thyroid Disorder Additional Past Medical History / Comment(s): Lymphoma diagnosed 05/2015 and has had 6 chemotherapy txs, hydrocephalus, TIAs x3, silent [place]/EKG, hypothyroid, [place] bilaterally, bilateral cataracts. 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 Past Anesthesia/Blood Transfusion Reactions: No Reported Reaction Smoking Status: Former smoker - Past Family History Father Family Medical History: Liver Disease Mother Family Medical History: Cancer Additional Family Medical History / Comment(s): Mother had uterine cancer with sx. She at the age of 89yrs. Medications and Allergies Home Medications Medication Instructions Recorded Confirmed Type Atorvastatin [Lipitor] 40 mg PO HS 06/17/16 11/16/16 History Clopidogrel Bisulfate [Plavix] 75 mg PO DAILY 06/17/16 11/16/16 History Fenofibrate Nanocrystallized 48 mg PO DAILY 06/17/16 11/16/16 History [Fenofibrate] Levothyroxine Sodium [Synthroid] 100 mcg PO DAILY 06/17/16 11/16/16 History Pantoprazole [Protonix] 40 mg PO DAILY 06/17/16 11/16/16 History amLODIPine [Norvasc] 10 mg PO DAILY 06/17/16 11/16/16 History predniSONE 20 mg PO DAILY 06/17/16 11/16/16 History Acetaminophen [Tylenol] 1,000 mg PO HS PRN 11/16/16 11/16/16 History Allergies Allergy/AdvReac Type Severity Reaction Status Date / Time adhesive tape Allergy Rash/Hives Verified 11/16/16 11:34 pneumococcal vaccine AdvReac Swelling Verified 11/16/16 11:34 Surgical - Exam Vital Signs Temp Pulse Resp BP Pulse Ox 98.0 F 100 20 135/61 98 11/16/16 10:37 11/16/16 10:37 11/16/16 10:37 11/16/16 10:37 11/16/16 10:37 GENERAL APPEARANCE: 81-year-old male patient is alert, oriented, in no acute distress. Sitting up in bed states the abdominal discomfort has improved VITAL SIGNS: Reviewed HEENT: Head is normocephalic and atraumatic. Pupils are equal and reactive. The nares are patent. Oropharynx is clear without lesions. NECK: Supple without lymphadenopathy. Traches midline. HEART: S1, S2. Regular rate and rhythm. No murmur noted denying chest pain LUNGS: No crackles or wheezes are heard. Adequate air movement bilaterally on room air ABDOMEN: Soft, slight diffuse tenderness across the abdominal wall nondistended with good bowel sounds. No peritoneal signs. No palpable organomegaly or masses. Well-healed mid surgical scar noted EXTREMITIES: Normal skin color and turgor. No cyanosis, rash, ulceration, clubbing or edema. Radial pedal pulses are 2/4 bilaterally. NEUROLOGICAL: No focal deficits. Strength and sensation are grossly intact. Results - Labs 11/17/16 06:56 11/17/16 06:56 Abnormal Lab Results - Last 24 Hours (Table) 11/17/16 11/17/16 Range/Units 06:56 06:56 WBC 13.7 H (3.8-10.6) k/uL RBC 3.66 L (4.30-5.90) m/uL Hgb 10.0 L D (13.0-17.5) gm/dL Hct 32.1 L (39.0-53.0) % Plt Count 465 H (150-450) k/uL Neutrophils # 11.9 H (1.3-7.7) k/uL Lymphocytes # 0.6 L (1.0-4.8) k/uL Sodium 135 L (137-145) mmol/L Glucose 122 H (74-99) mg/dL Diabetes panel 11/17/16 Range/Units 06:56 Sodium 135 L (137-145) mmol/L Potassium 4.8 (3.5-5.1) mmol/L Chloride 103 (98-107) mmol/L Carbon Dioxide 25 (22-30) mmol/L BUN 19 (9-20) mg/dL Creatinine 1.07 (0.66-1.25) mg/dL Glucose 122 H (74-99) mg/dL Calcium 8.6 (8.4-10.2) mg/dL Calcium panel 11/17/16 Range/Units 06:56 Calcium 8.6 (8.4-10.2) mg/dL Pituitary panel 11/17/16 Range/Units 06:56 Sodium 135 L (137-145) mmol/L Potassium 4.8 (3.5-5.1) mmol/L Chloride 103 (98-107) mmol/L Carbon Dioxide 25 (22-30) mmol/L BUN 19 (9-20) mg/dL Creatinine 1.07 (0.66-1.25) mg/dL Glucose 122 H (74-99) mg/dL Calcium 8.6 (8.4-10.2) mg/dL Adrenal panel 11/17/16 Range/Units 06:56 Sodium 135 L (137-145) mmol/L Potassium 4.8 (3.5-5.1) mmol/L Chloride 103 (98-107) mmol/L Carbon Dioxide 25 (22-30) mmol/L BUN 19 (9-20) mg/dL Creatinine 1.07 (0.66-1.25) mg/dL Glucose 122 H (74-99) mg/dL Calcium 8.6 (8.4-10.2) mg/dL Assessment and Plan Plan: Impression Present on admission diffuse abdominal pain unclear etiology Echocardiogram June 2016 left ventricular systolic function mildly impaired with an EF between 45 and 50% no evidence of pulmonary hypertension Chronic systolic congestive heart failure no evidence of an exacerbation History of hydrocephalus with a VQ shunt 12 years prior CAT scan abdomen and pelvis shows, conglomerate small bowel loops within the midabdomen with inflammatory changes and a large adenopathy suspected in the para-aortic and caval region History of lymphoma patient reports remission diagnosed 2015 COPD stable no evidence of an acute exacerbation Colonoscopy EGD per patient report no acute findings one year prior Present on admission leukocytosis History of bilateral inguinal hernia repairs Plan Pain control Resume home meds as appropriate DVT and GI prophylaxis No evidence of an acute surgical abdomen Further surgical recommendations pending clinical course Continue with the clinical recommendations by medicine service defer to Thank you for allowing us to participate in the surgical management of your patient further surgical recommendations pending will follow clinical course The above impression and plan of care have been discussed and directed by signing physician. Court Neves nurse practitioner acting as scribe for signing physician. <Shelton Kendrick - Last Filed: 11/17/16 17:37> Surgical - Exam Vital Signs Temp Pulse Resp BP Pulse Ox 98.0 F 100 20 135/61 98 11/16/16 10:37 11/16/16 10:37 11/16/16 10:37 11/16/16 10:37 11/16/16 10:37 Results - Labs 11/17/16 06:56 11/17/16 06:56 Abnormal Lab Results - Last 24 Hours (Table) 11/17/16 11/17/16 Range/Units 06:56 06:56 WBC 13.7 H (3.8-10.6) k/uL RBC 3.66 L (4.30-5.90) m/uL Hgb 10.0 L D (13.0-17.5) gm/dL Hct 32.1 L (39.0-53.0) % Plt Count 465 H (150-450) k/uL Neutrophils # 11.9 H (1.3-7.7) k/uL Lymphocytes # 0.6 L (1.0-4.8) k/uL Sodium 135 L (137-145) mmol/L Glucose 122 H (74-99) mg/dL Diabetes panel 11/17/16 Range/Units 06:56 Sodium 135 L (137-145) mmol/L Potassium 4.8 (3.5-5.1) mmol/L Chloride 103 (98-107) mmol/L Carbon Dioxide 25 (22-30) mmol/L BUN 19 (9-20) mg/dL Creatinine 1.07 (0.66-1.25) mg/dL Glucose 122 H (74-99) mg/dL Calcium 8.6 (8.4-10.2) mg/dL Calcium panel 11/17/16 Range/Units 06:56 Calcium 8.6 (8.4-10.2) mg/dL Pituitary panel 11/17/16 Range/Units 06:56 Sodium 135 L (137-145) mmol/L Potassium 4.8 (3.5-5.1) mmol/L Chloride 103 (98-107) mmol/L Carbon Dioxide 25 (22-30) mmol/L BUN 19 (9-20) mg/dL Creatinine 1.07 (0.66-1.25) mg/dL Glucose 122 H (74-99) mg/dL Calcium 8.6 (8.4-10.2) mg/dL Adrenal panel 11/17/16 Range/Units 06:56 Sodium 135 L (137-145) mmol/L Potassium 4.8 (3.5-5.1) mmol/L Chloride 103 (98-107) mmol/L Carbon Dioxide 25 (22-30) mmol/L BUN 19 (9-20) mg/dL Creatinine 1.07 (0.66-1.25) mg/dL Glucose 122 H (74-99) mg/dL Calcium 8.6 (8.4-10.2) mg/dL Assessment and Plan Plan: The patient's CAT scan is suggestive of recurrent lymphoma. The patient will be evaluated by the oncology service. His condition is improving. We will follow with you.
--- NOTE | 2016-11-17 15:19 | P.PN ---
Subjective Service 11/17/2016. Personal being dictated for Dr. Phillips. Interval history: This is a 81-year-old gentleman admitted with abdominal pain, possible lymphoma relapse, possible carcinoid syndrome or metastasis and multiple other medical issues. Patient recently had a PET scan at another hospital. Records being obtained as daughter requests treatment be done here. Last night had one emesis which patient attributes to [place] on top of minimal diet intake. Consuming 100% diet this morning with no nausea vomiting or diarrhea. Denies abdominal pain and has not required any pain medication today. Surgery consult in place with recommendations pending. Objective - Vital Signs Vital signs: Vital Signs Temp 97.6 F 11/17/16 07:00 Pulse 59 L 11/17/16 07:00 Resp 16 11/16/16 23:00 BP 119/58 11/17/16 07:00 Pulse Ox 94 L 11/17/16 07:00 Intake & Output 11/16/16 11/17/16 11/17/16 18:59 06:59 18:59 Intake Total 1290 Balance 1290 Weight 99.79 kg Intake: IV 200 metroNIDAZOLE-NS PMX 500 200 mg In Saline 1 100ml.bag @ 100 mls/hr IVPB Q12H [facility] Rx#:[id number] Oral 1090 Other: Voiding Method Toilet Toilet Toilet # Voids 1 # Bowel Movements 1 - Exam PHYSICAL EXAM: VITAL SIGNS: As above GENERAL: Sitting up in bed, no acute distress HEENT: Conjunctivae normal. eyes normal. Oral mucosa normal NECK: No JVD. No thyroid enlargement. No LN enlargement CARDIOVASCULAR: S1, S2 regular,. No murmur, rubs or gallops RESPIRATION: Breath sounds diminished in the bases. No rhonchi or crackles. No bronchial breathing. ABDOMEN: Soft, obese, well approximated surgical scar-midabdomen, mild diffuse discomfort . No guarding. No rigidity. No hepatosplenomegaly.no ascites. Bowel sounds present LEGS: No edema. no swelling PSYCHIATRY: Alert and oriented -3, mood and affect normal. NERVOUS SYSTEM: Cranial N 2-12 grossly normal. Moves all 4 limbs. No focal deficits. No sensory deficit. Skin: no ulcer no rash Lymphatic system. No LN palpable in neck, axilla or groin. - Labs CBC & Chem 7: 11/17/16 06:56 11/17/16 06:56 Labs: Abnormal Lab Results - Last 24 Hours (Table) 11/17/16 11/17/16 Range/Units 06:56 06:56 WBC 13.7 H (3.8-10.6) k/uL RBC 3.66 L (4.30-5.90) m/uL Hgb 10.0 L D (13.0-17.5) gm/dL Hct 32.1 L (39.0-53.0) % Plt Count 465 H (150-450) k/uL Neutrophils # 11.9 H (1.3-7.7) k/uL Lymphocytes # 0.6 L (1.0-4.8) k/uL Sodium 135 L (137-145) mmol/L Glucose 122 H (74-99) mg/dL Assessment and Plan Plan: 1. Abdominal pain with possible lymphoma relapse Or recurrent, in a patient with history of lymphoma. 2. Rule out carcinoid syndrome or metastasis]. 3. Hyponatremia]. 4. History of hydrocephalus status post ventriculoperitoneal shunt]. 5. Leukocytosis, improving. Plan: Continue on current medication regime ,monitoring and symptomatic treatment. PET scan/records being obtained from other hospital. Surgery and Oncology consults in place, recommendations pending. Close monitoring of electrolytes,hemoglobin, WBC with repeat labs ordered for a.m. increase ambulation as tolerated. Further recommendations to follow. The impression and plan of care has been dictated as directed as a scribe. : I performed a H&P examination of this patient and discussed the same with the dictator. I agree with the dictator's note. Any additional findings/opinions/ etc. will be noted.
--- NOTE | 2016-11-17 19:16 | P.CONS ---
History of Present Illness - Reason for Consult Consult date: 11/17/16 History of Lymphoma Requesting physician: Eleazar Ty - Chief Complaint abd pain - History of Present Illness Mr. Jacome is a very pleasant 81 year old male pt who has a history of lymphoma 2-3 years ago (daughter says 2013 but pt thinks it was 2014), he does not know what type of lymphoma. Pt completed 6 cycles-what sounds to be R- CHOP, no radiation, and states remission ever since with follow up appts and scans with his primary Oncologist Dr. Vila about every 3-4 months. His last PET was about 1 mo ago, he is not aware of the results, he is supposed to follow up with Dr. Vila next month. Pt came to hospital with c/o abdominal pain, LUQ/epigastric area, 3 mo duration , progressively worsening, sharp, worse when he touches his abdomen, pain meds have been helping, it does radiate to the back, he has had an associated 30lb wt. loss in 3 months. 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 Review of Systems 14 point ROS is as stated in HPI Past Medical History Past Medical History: Cancer, COPD, CVA/TIA, Hearing Disorder / Deafness, Hyperlipidemia, Hypertension, Myocardial Infarction ([place]), Thyroid Disorder Additional Past Medical History / Comment(s): Lymphoma diagnosed 05/2014 and has had 6 chemotherapy txs, hydrocephalus, TIAs x3, silent CT/EKG, hypothyroid, [place] bilaterally, bilateral cataracts. 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 Past Anesthesia/Blood Transfusion Reactions: No Reported Reaction Past Psychological History: No Psychological Hx Reported Smoking Status: Former smoker Past Alcohol Use History: None Reported Past Drug Use History: None Reported - Past Family History Father Family Medical History: Liver Disease Mother Family Medical History: Cancer Additional Family Medical History / Comment(s): Mother had uterine cancer with sx. She at the age of 89yrs. Medications and Allergies Home Medications Medication Instructions Recorded Confirmed Type Atorvastatin [Lipitor] 40 mg PO HS 06/17/16 11/16/16 History Clopidogrel Bisulfate [Plavix] 75 mg PO DAILY 06/17/16 11/16/16 History Fenofibrate Nanocrystallized 48 mg PO DAILY 06/17/16 11/16/16 History [Fenofibrate] Levothyroxine Sodium [Synthroid] 100 mcg PO DAILY 06/17/16 11/16/16 History Pantoprazole [Protonix] 40 mg PO DAILY 06/17/16 11/16/16 History amLODIPine [Norvasc] 10 mg PO DAILY 06/17/16 11/16/16 History predniSONE 20 mg PO DAILY 06/17/16 11/16/16 History Acetaminophen [Tylenol] 1,000 mg PO HS PRN 11/16/16 11/16/16 History Allergies Allergy/AdvReac Type Severity Reaction Status Date / Time adhesive tape Allergy Rash/Hives Verified 11/16/16 11:34 pneumococcal vaccine AdvReac Swelling Verified 11/16/16 11:34 Physical Exam Vitals: Vital Signs Temp Pulse Resp BP Pulse Ox 11/17/16 15:00 97.5 F L 71 125/55 93 L 11/17/16 07:00 97.6 F 59 L 119/58 94 L 11/17/16 00:38 63 120/61 11/16/16 23:00 97.7 F 88 16 137/67 98 Intake and Output 11/17/16 11/17/16 11/17/16 06:59 14:59 22:59 Intake Total 200 100 Balance 200 100 Intake: IV 200 100 metroNIDAZOLE-NS PMX 500 200 100 mg In Saline 1 100ml.bag @ 100 mls/hr IVPB Q12H [facility] Rx#:[id number] Other: Voiding Method Toilet Toilet # Voids 1 - Constitutional General appearance: cooperative, no acute distress, obese - EENT Eyes: anicteric sclerae, EOMI, PERRLA, normal appearance ENT: normal oropharynx - Neck Neck: no lymphadenopathy - Respiratory Respiratory: bilateral: CTA - Cardiovascular Rhythm: regular Heart sounds: normal: S1, S2 Abnormal Heart Sounds: no systolic murmur, no diastolic murmur, no rub, no S3 Gallop, no S4 Gallop, no click, no other leg Peripheral Edema: bilateral: None - Gastrointestinal epigastric protrusion, size of an orange, soft. Midline, suprapubic firmness palpated,tenderness in LUQ, no hepatosplenomegaly, inguinal adenopathy General gastrointestinal: normal bowel sounds, soft - Integumentary Integumentary: normal, pale - Neurologic Neurologic: CNII-XII intact - Musculoskeletal Musculoskeletal: strength equal bilaterally - Psychiatric Psychiatric: A&O x's 3, appropriate affect, intact judgment & insight Results CBC & Chem 7: 11/17/16 06:56 11/17/16 06:56 Labs: Abnormal Lab Results - Last 24 Hours (Table) 11/17/16 11/17/16 Range/Units 06:56 06:56 WBC 13.7 H (3.8-10.6) k/uL RBC 3.66 L (4.30-5.90) m/uL Hgb 10.0 L D (13.0-17.5) gm/dL Hct 32.1 L (39.0-53.0) % Plt Count 465 H (150-450) k/uL Neutrophils # 11.9 H (1.3-7.7) k/uL Lymphocytes # 0.6 L (1.0-4.8) k/uL Sodium 135 L (137-145) mmol/L Glucose 122 H (74-99) mg/dL CT scan - abdomen: report reviewed CT scan - pelvis: report reviewed Assessment and Plan (1) Abdominal pain Narrative/Plan: Pain is likely r/t the mass/lymphadenopathy in the abd. Currently beacon is managing the pain adequately for the pt. Cont with pain management for now. Status: Acute (2) Abdominal mass Status: Acute (3) Anemia Narrative/Plan: Anemia work up has been ordered. No need for transfusion at this time, Hgb adequate. Status: Chronic (4) Lymphadenopathy of other site Status: Acute (5) History of lymphoma Status: Chronic Plan: Pt was treated by Dr. Ambika Vila. His office has been contacted for records and transfer of care as pt is moving to [place] to live with his daughter-pt can no longer care for is with medical conditions. I did discuss this with pt daughter and she confirms that she would like care to be transferred to a local Oncologist. Records have been requested. Case will be reviewed with Dr. Herrera. Surgery has seen pt so we will contact them about appropriate target for biopsy and proceed from there. All of pt and his daughters questions were answered to the best of my ability
[2016-11-17] MEDS: ATORVASTATIN 40 MG TAB PO SCH (21:55)
[2016-11-18] MEDS: metroNIDAZOLE-NS PMX 500 MG in SALINE 1 100ML.BAG IVPB SCH (00:49)
[2016-11-18] MEDS: LEVOTHYROXINE 100 MCG TAB PO SCH (06:16)
[2016-11-18 07:23] LABS: Basophils % (A) 0 %; CH 28.5; CHCM 32.9; Eosinophils # (A) 0.1 k/uL (0-0.7); Eosinophils % (A) 1 %; HCT 30.4 % (39.0-53.0); HDW 2.64; HGB 9.7 gm/dL (13.0-17.5); Luc # (Auto) 0.19; Luc % (Auto) 2; Lymphocytes # (A) 0.7 k/uL (1.0-4.8); Lymphocytes % (A) 6 %; MCH 27.7 pg (25.0-35.0); MCHC 31.8 g/dL (31.0-37.0); MCV 87.1 fL (80.0-100.0); Mean Platelet Volume 8.1; Monocytes # (A) 0.8 k/uL (0-1.0); Monocytes % (A) 7 %; Neutrophils # (A) 9.8 k/uL (1.3-7.7); Neutrophils % (A) 85 %; RBC 3.49 m/uL (4.30-5.90); RDW 15.5 % (11.5-15.5); WBC 11.4 k/uL (3.8-10.6); WBC (Perox) 12.36
[2016-11-18 07:36] VITALS: BP 157/71; TEMP 97.6
[2016-11-18 07:41] LABS: Anion Gap 9 mmol/L; Blood Urea Nitrogen 23 mg/dL (9-20); Calcium 8.5 mg/dL (8.4-10.2); Carbon Dioxide 22 mmol/L (22-30); Chloride 104 mmol/L (98-107); Glucose 100 mg/dL (74-99); LDH 600 U/L (313-618); Non-African American GFR(MDRD) >60 (>60 ml/min/1.73 sqM); Potassium 4.4 mmol/L (3.5-5.1); Sodium 135 mmol/L (137-145)
[2016-11-18 08:41] VITALS: PULSE 60
[2016-11-18] MEDS: amLODIPine 10 MG TAB PO SCH (09:42)
[2016-11-18] MEDS: CLOPIDOGREL 75 MG TAB PO SCH (09:43)
[2016-11-18] MEDS: ENOXAPARIN 40 MG/0.4 ML SYRINGE SQ SCH (09:43)
[2016-11-18 09:44] LABS: Iron 38 ug/dL (49-181)
[2016-11-18] MEDS: FENOFIBRATE 54 MG TAB PO SCH (09:44)
[2016-11-18] MEDS: PANTOPRAZOLE 40 MG/10 ML VIAL IV SCH (09:45)
[2016-11-18 09:54] LABS: % Iron Saturation 16.3 % (20-50); Total Iron Binding Capacity 233 ug/dL (261-462)
[2016-11-18] MEDS: predniSONE 20 MG TAB PO SCH (10:08)
--- NOTE | 2016-11-18 14:36 | P.PN ---
Subjective 81-year-old male being seen this morning. Daughter at bedside. Patient reports less abdominal pain in the left lower quadrant improving. States pain medication effective for pain control Did review the recommendations by hematology oncology. Apparently the patient is moving locally to live with his daughter is asking for his healthcare to be obtained locally. Oncology recommends possible biopsies per appropriate target to address questionable mass lymphadenopathy abdominally. Patient does have a history of lymphoma 2-3 years prior according to the patient he has received 6 cycles of treatment no radiation and states it's in remission Objective - Vital Signs Vital signs: Vital Signs Temp 97.6 F 11/18/16 07:34 Pulse 59 L 11/18/16 07:36 Resp 16 11/18/16 07:36 BP 157/71 11/18/16 07:34 Pulse Ox 94 L 11/17/16 23:00 Intake & Output 11/17/16 11/18/16 11/18/16 18:59 06:59 18:59 Intake Total 100 690 Balance 100 690 Intake: IV 100 100 metroNIDAZOLE-NS PMX 500 100 100 mg In Saline 1 100ml.bag @ 100 mls/hr IVPB Q12H [facility] Rx#:[id number] Oral 590 Other: Voiding Method Toilet Toilet Toilet # Voids 1 - Exam Physical exam Pleasant 81-year-old male sitting up in bed appears in no acute distress states pain medication effective for pain control daughter at the bedside Lungs essentially clear with adequate air movement Heart S1-S2 audible regular Abdomen slight tenderness to the left upper quadrant soft epigastric protrusion nontender bowel tones present no reports of nausea vomiting Extremities no edema noted - Labs CBC & Chem 7: 11/18/16 06:54 11/18/16 06:54 Labs: Abnormal Lab Results - Last 24 Hours (Table) 11/18/16 11/18/16 11/18/16 Range/Units 06:54 06:54 06:54 WBC 11.4 H (3.8-10.6) k/uL RBC 3.49 L (4.30-5.90) m/uL Hgb 9.7 L (13.0-17.5) gm/dL Hct 30.4 L (39.0-53.0) % Plt Count 480 H (150-450) k/uL Neutrophils # 9.8 H (1.3-7.7) k/uL Lymphocytes # 0.7 L (1.0-4.8) k/uL Sodium 135 L (137-145) mmol/L BUN 23 H (9-20) mg/dL Glucose 100 H (74-99) mg/dL Iron 38 L (49-181) ug/dL TIBC 233 L (261-462) ug/dL % Saturation 16.3 L (20-50) % Ferritin 453.4 H (22.0-322.0) ng/mL Assessment and Plan Plan: Impression Present on admission diffuse abdominal pain likely related to abdominal mass/ lymphadenopathy Acute abdominal mass Acute lymphadenopathy of other site Echocardiogram June 2016 left ventricular systolic function mildly impaired with an EF between 45 and 50% no evidence of pulmonary hypertension Chronic systolic congestive heart failure no evidence of an exacerbation History of hydrocephalus with a VQ shunt 12 years prior CAT scan abdomen and pelvis shows, conglomerate small bowel loops within the midabdomen with inflammatory changes and a large adenopathy suspected in the para-aortic and caval region History of lymphoma patient reports remission diagnosed 2015 COPD stable no evidence of an acute exacerbation Colonoscopy EGD per patient report no acute findings one year prior Present on admission leukocytosis History of bilateral inguinal hernia repairs Plan Pain control Resume home meds as appropriate DVT and GI prophylaxis No evidence of an acute surgical abdomen Further surgical recommendations pending clinical course possible need for appropriate target biopsies of the abdominal mass/lymphadenopathy Continue with the clinical recommendations by medicine service defer to The above impression and plan of care have been discussed and directed by signing physician. Court Neves nurse practitioner acting as scribe for signing physician.
--- NOTE | 2016-11-18 16:04 | P.DS ---
Providers Date of admission: 11/16/16 13:50 Attending physician: Vadim Marin MD Consults: 11/16/16 13:51 Consult Physician Routine Consulting Provider: Shelton Wasserman Consult Reason/Comments: abd pain Do you want consulting provider notified?: Yes Consult Physician Routine Consulting Provider: Chriss Herrera Consult Reason/Comments: hx lymphoma Do you want consulting provider notified?: Yes Primary care physician: Physician Nonstaff Hospital Course: This 86-year-old gentleman with a past medical history lymphoma being treated elsewhere was admitted to [facility] with complaints of abdominal pain. CAT scan showed a significant lymphadenopathy. The possibility of carcinoid Syndrome or metastasis Is Also Considered. Dr. Herrera from Hematology Oncology and's Dr. wasserman from Surgery Was Consulted. Recommended Not. Close Outpatient Follow-Up. Patient Also Had a History of Hydrocephalus with the Ventricular Rate on a Shunt. The Patient Had a Recent PET Scan Which Showed No Recurrence. The Patient Is Planning to Move Locally. I Recommended the Patient to Follow up Closely with the Dr. Day in the Outpatient Setting. Total time taken 35 minutes. On Exam Vitals Are Stable. Cardio S1-S2 Normal. Abdomen Soft Obese Nontender No Mass Palpable. Chest Clear to Auscultation. Final Diagnosis 1. Abdominal Pain with a Possible Lymphoma Relapse or Recurrence and Lymphadenopathy Causing Possible Abdominal Pain. 2. Rule Out Carcinoid Syndrome or Metastasis. 3. Hyponatremia. 4. History of Hydrocephalus Status Post Ventriculoperitoneal Shunt. 5. Leukocytosis Improving. Patient Condition at Discharge: Fair Plan - Discharge Summary New Discharge Prescriptions: New Ciprofloxacin HCl [Cipro] 500 mg PO Q12HR #10 tablet metroNIDAZOLE [Flagyl] 500 mg PO Q8HR #15 tab Continue Clopidogrel Bisulfate [Plavix] 75 mg PO DAILY Atorvastatin [Lipitor] 40 mg PO HS Levothyroxine Sodium [Synthroid] 100 mcg PO DAILY Fenofibrate Nanocrystallized [Fenofibrate] 48 mg PO DAILY predniSONE 20 mg PO DAILY Pantoprazole [Protonix] 40 mg PO DAILY amLODIPine [Norvasc] 10 mg PO DAILY Acetaminophen [Tylenol] 1,000 mg PO HS PRN PRN Reason: Pain Discharge Medication List Atorvastatin [Lipitor] 40 mg PO HS 06/17/16 [History] Clopidogrel Bisulfate [Plavix] 75 mg PO DAILY 06/17/16 [History] Fenofibrate Nanocrystallized [Fenofibrate] 48 mg PO DAILY 06/17/16 [History] Levothyroxine Sodium [Synthroid] 100 mcg PO DAILY 06/17/16 [History] Pantoprazole [Protonix] 40 mg PO DAILY 06/17/16 [History] amLODIPine [Norvasc] 10 mg PO DAILY 06/17/16 [History] predniSONE 20 mg PO DAILY 06/17/16 [History] Acetaminophen [Tylenol] 1,000 mg PO HS PRN 11/16/16 [History] Ciprofloxacin HCl [Cipro] 500 mg PO Q12HR #10 tablet 11/18/16 [Rx] metroNIDAZOLE [Flagyl] 500 mg PO Q8HR #15 tab 11/18/16 [Rx] Follow up Appointment(s)/Referral(s): Chriss Herrera MD [STAFF PHYSICIAN] - 1 Week (office will call to set up appointment after they recieve scans. If you do not hear from them in one week call office. ) Briana Day MD [STAFF PHYSICIAN] - 3 Days (Patient to call Dr. Day's office Tuesday morning to schedule follow up appointment, The office is closed at time of discharge.) Shelton Wasserman MD [STAFF PHYSICIAN] - 1 Week Ambulatory/Diagnostic Orders: Complete Blood Count w/diff [LAB.AMB] Time Frame: 3 Days, Location: Determined By Patient Patient Instructions/Handouts: Ciprofloxacin (By mouth), Metronidazole (By mouth), Leukocytosis (DC), Anemia (DC) Activity/Diet/Wound Care/Special Instructions: Diet:Regular activity: limited till F/U Discharge Disposition: HOME SELF-CARE
== END 2016-11-18 14:10 | disposition home or self-care (01) | DRG 841 ==
LOC: EC 10:23 → 5ONC 13:50
PROVIDERS: ADMIT Internal Medicine; ATTEND Internal Medicine
DX: C85.90 Non-Hodgkin lymphoma, unspecified, unspecified site (principal); E87.1 Hypo-osmolality and hyponatremia; J44.9 Chronic obstructive pulmonary disease, unspecified; I11.0 Hypertensive heart disease with heart failure; I50.22 Chronic systolic (congestive) heart failure; D63.8 Anemia in other chronic diseases classified elsewhere; Z98.2 Presence of cerebrospinal fluid drainage device; E78.5 Hyperlipidemia, unspecified; D72.829 Elevated white blood cell count, unspecified; T40.606A Underdosing of unspecified narcotics, initial encounter; E03.9 Hypothyroidism, unspecified; E66.9 Obesity, unspecified; I25.2 Old myocardial infarction; H91.90 Unspecified hearing loss, unspecified ear; I49.1 Atrial premature depolarization; R59.0 Localized enlarged lymph nodes; R63.4 Abnormal weight loss; H91.93 Unspecified hearing loss, bilateral; R35.0 Frequency of micturition; Z79.02 Long term (current) use of antithrombotics/antiplatelets; Z79.52 Long term (current) use of systemic steroids; Z98.42 Cataract extraction status, left eye; Z98.41 Cataract extraction status, right eye; Z86.73 Personal history of transient ischemic attack (TIA), and cerebral infarction without residual deficits; Z87.891 Personal history of nicotine dependence; Z79.899 Other long term (current) drug therapy; Z92.21 Personal history of antineoplastic chemotherapy; Z80.49 Family history of malignant neoplasm of other genital organs; Z83.79 Family history of other diseases of the digestive system; Z86.69 Personal history of other diseases of the nervous system and sense organs; Z63.6 Dependent relative needing care at home; Z91.14 Patient's other noncompliance with medication regimen; Z88.7 Allergy status to serum and vaccine; Z91.048 Other nonmedicinal substance allergy status
CPT/HCPCS: 36415; 74177; 80048; 80053; 81001; 82150; 82728; 83540; 83550; 83605; 83615; 83690; 83921; 85025; 85045; 85610; 85730; 93005; 96361; 96365; 96368; 99285

== ENCOUNTER → 2017-01-01 | Outpatient (CLI) | payer MEDICARE, OTHER ==
--- NOTE | 2017-01-03 15:25 | PE ---
Nuclear medicine PET/CT HISTORY: Non-Hodgkin lymphoma, C 85.98, subsequent visit Correlation to CT scan of the chest 06/17/2016, CT abdomen pelvis 11/16/2016 Patient received 14.6 mCi F-18 FDG intravenously in delayed scanning was performed from the skull bas e through the mid thighs. Localization and attenuation correction CT scan was performed. Head, Neck and chest: Ventriculoperitoneal shunt tubing is present on the right. Supraclavicular node on the left measures approximately 16 mm in short axis, SUV 10.1, right-sided supraclavicular node, not enlarged and shows SUV 4.8. Bilateral axillary adenopathy is present and has developed in the int erval. SUV 7-14. Internal mammary nodes nonenlarged present SUV 4.5 on the left and 4.0 on the right. Mild uptake at a periaortic node at the level of the hiatus, SUV 2.8. There are coronary artery calc ifications. The heart is enlarged. There is some stable nodularity at the right lung base. There are coronary artery calcifications. Abdomen pelvis: Upper abdomen shows adenopathy, there is retroperitoneal adenopathy and mesenteric ad enopathy as noted on prior CT. There is associated hypermetabolic uptake. SUV 5-16. Bilateral iliac a denopathy, hypermetabolic uptake ranging from 5.5-12. Small nodes within the pelvis show mild elevati on, SUV 3.1, left inguinal node shows SUV 8.2 Osseous structures within normal limits. IMPRESSION: Abnormal hypermetabolic uptake, interval adenopathy in the chest as described.
== END | disposition home or self-care (01) ==
LOC: RADPETMAIN 07:16
PROVIDERS: ATTEND Internal Medicine Hematology & Oncology
DX: C85.98 Non-Hodgkin lymphoma, unspecified, lymph nodes of multiple sites (principal); R93.5 Abnormal findings on diagnostic imaging of other abdominal regions, including retroperitoneum; R59.0 Localized enlarged lymph nodes
CPT/HCPCS: 78815; A9552

== ENCOUNTER → 2017-03-26 | Outpatient (CLI) | payer MEDICARE, OTHER ==
--- NOTE | 2017-03-27 13:55 | PE ---
Nuclear medicine PET/CT HISTORY: Non-Hodgkin's lymphoma, C 85.98, subsequent visit Patient received 13.9 mCi F-18 FDG intravenously in delayed scanning was performed from skull base to the mid thighs. Localization and attenuation correction CT scan was performed. Correlation to prior nuclear medicine PET/CT dated 01/01/2017 Neck and chest: There is more intense hypermetabolic uptake present throughout much of the nodes in t he upper chest bilaterally. Postop changes noted in the right axilla. Several nodes are essentially s table in size, subpectoral node on the left appears slightly smaller. There are 2 new lesions present within the left lower lobe one of which measures approximately 2.8 centimeters with associated hyper metabolic uptake in the perihilar location left upper lobe abutting the fissure, additional abutting the posterior pleura left upper lobe measuring 2.5 cm. New right pleural effusion is present. Nodular density in the right lower lobe is also new without associated hypermetabolic uptake measuring 9 mm. Internal mammary adenopathy stable. Left hilar nodes shows mild hypermetabolic uptake. There are coronary artery calcifications, the heart is stable. Abdomen pelvis: Retroperitoneal adenopathy at the level of the head of the pancreas has decreased in size and hypermetabolic uptake measuring 3.9 cm apprising exam in AP dimension and now approximately 2.7 cm. The mesenteric soft tissue mass has decreased in size and hypermetabolic uptake as compared t o prior. Pericaval adenopathy is also somewhat diminished as compared to prior. Right iliac adenopath y and left iliac adenopathy has changed, common iliac node seen on prior image 209 has diminished in size whereas image #191 on current is increased in size and activity is compared to prior image 210 o n the right. Inguinal adenopathy has increased in size and activity. Osseous structures are stable. Possible underlying hydrocele in the scrotum. IMPRESSION: Mixed response to therapy is demonstrated.
== END ==
LOC: RADPETMAIN 10:29
PROVIDERS: ATTEND Internal Medicine Hematology & Oncology
DX: C85.98 Non-Hodgkin lymphoma, unspecified, lymph nodes of multiple sites (principal)
CPT/HCPCS: 78815; A9552

== ENCOUNTER 2017-04-04 08:04 | Inpatient (IN) | payer MEDICARE, OTHER ==
[2017-04-04 09:47] LABS: ALT 29 U/L (21-72); AST 22 U/L (17-59); Albumin 3.3 g/dL (3.5-5.0); Alkaline Phosphatase 104 U/L (38-126); Anion Gap 8 mmol/L; Anisocytosis Slight; Basophils % (A) 0 %; Blood Urea Nitrogen 19 mg/dL (9-20); Calcium 9.2 mg/dL (8.4-10.2); Carbon Dioxide 27 mmol/L (22-30); Chloride 105 mmol/L (98-107); Eosinophils # (A) 0.1 k/uL (0-0.7); Eosinophils % (A) 1 %; Glucose 101 mg/dL (74-99); HCT 36.8 % (39.0-53.0); HGB 11.2 gm/dL (13.0-17.5); Hypochromasia Slight; Lymphocytes # (A) 1.6 k/uL (1.0-4.8); Lymphocytes % (A) 15 %; MCH 26.5 pg (25.0-35.0); MCHC 30.3 g/dL (31.0-37.0); MCV 87.5 fL (80.0-100.0); Monocytes # (A) 0.8 k/uL (0-1.0); Monocytes % (A) 7 %; Neutrophils # (A) 7.8 k/uL (1.3-7.7); Neutrophils % (A) 75 %; Platelet Count 441 k/uL (150-450); Potassium 4.7 mmol/L (3.5-5.1); RBC 4.21 m/uL (4.30-5.90); RDW 19.7 % (11.5-15.5); Sodium 140 mmol/L (137-145); Total Bilirubin 0.3 mg/dL (0.2-1.3); Total Protein 5.6 g/dL (6.3-8.2); WBC 10.5 k/uL (3.8-10.6)
[2017-04-04 09:48] LABS: Prothrombin Time 10.2 sec (9.0-12.0)
[2017-04-04] MEDS: SODIUM CHLORIDE 0.9% 1,000 ML IV SCH ×2 (11:46→16:07)
[2017-04-04 12:55] LABS: Glucose,Whole Blood 163 mg/dL (75-99)
--- NOTE | 2017-04-04 13:05 | P.HPIM ---
History of Present Illness H&P Date: 04/04/17 Chief Complaint: Admit for CIVI chemotherapy for NHL not in remission Mr. Jacome is a very pleasant male pt of Dr. Herrera who was initially seen in consult 11/16/16 when he presented with LUQ and epigastric area, persistent and progressive x 3 mo, radiating to the back with only partial pain relief from narcotics, he also lost his appetite, down 30 lbs in 90 days. He was seen in office for the 1st time i1, since the time of his initial presentation he now had a mass in the right axilla that had increased in size over 1week. 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 He was started on Bendamustine and Rituxan 0n and had 2 cycles, he had progressive symptoms so treatment f/u PET was done, this showed progression above the diaphragm, only partial response below diaphragm. Salvage treatment wit R-ICE protocol was recommended and pt is admitted today to begin treatment. When seen today patient states left arm and leg weakness, this started last , patient refused to come to the hospital. Patient has a history of TIA /CVA, he currently is denying fevers, acute illness, difficulty swallowing, nausea, vomiting, shortness of breath, palpitations, he has abdominal hernia in the area where his ventricular shunt drains, he denies increase in the size, no pain in the area, no changes in bowel or bladder habits, incontinence, he had bilateral lower extremity swelling but, now only the left leg is continuing to be swollen, patient did fall against the wall over the weekend, denied head injury or back injury, he did not fall on the floor. Patient is denying numbness or tingling, no other neurological deficits to report. Hx of lymphoma from 2014: treated with chemo at [facility]. Presented with increasing abdominal pain and distention, abdominal imaging at that time revealed evidence of retroperitoneal adenopathy and large volume ascites, CT biopsy of the retroperitoneal nodes pathology on ascitic fluid revealed atypical lymphocytic proliferation. Specimens went for further eval to the [facility], felt large B-cell lymphoma, PET was positive in periportal, retroperitoneal, mesenteric, left supraclavicular, periaortic, retrocrural, right external iliac and splenic hilar nodes, staged as IIIa, and started on chemotherapy with R-CHOP on 01/26, completing chemotherapy in 04/29, post treatment PET was negative for uptake. He was placed in observation, f/u CT scans from 10/08/16 showing some persistent posterior abdominal adenopathy that decreased from before. Review of Systems 14 point ROS as stated in HPI Past Medical History Past Medical History: Cancer, COPD, CVA/TIA, GERD/Reflux, Hearing Disorder / Deafness, Hyperlipidemia, Hypertension, Myocardial Infarction (LA), Thyroid Disorder Additional Past Medical History / Comment(s): Large B cell lymphomas with past/ current chemotherapy, bilateral pleural effusions, anemia, TIAs x 3, silent LA/ EKG, hydrocephalus with BP shunt, hypothyroid, past gout, bilateral cataracts, TEJON bilaterally -wears aides (left at home). 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 number [phone]/serial number [id number] placed by Dr. De Anda in [facility] 09[facility]10[facility], ventral and R inguinal hernia repairs, EGD/colonoscopy-normal. Past Anesthesia/Blood Transfusion Reactions: No Reported Reaction Past Psychological History: No Psychological Hx Reported Smoking Status: Former smoker Past Alcohol Use History: Occasional Past Drug Use History: None Reported - Past Family History Father Family Medical History: Liver Disease Mother Family Medical History: Cancer Additional Family Medical History / Comment(s): Mother had uterine cancer with sx. She at the age of 89yrs. Medications and Allergies Home Medications Medication Instructions Recorded Confirmed Type Atorvastatin [Lipitor] 40 mg PO HS 06/17/16 04/04/17 History Clopidogrel Bisulfate [Plavix] 75 mg PO DAILY 06/17/16 04/04/17 History Fenofibrate Nanocrystallized 48 mg PO DAILY 06/17/16 04/04/17 History [Fenofibrate] Levothyroxine Sodium [Synthroid] 100 mcg PO DAILY 06/17/16 04/04/17 History Pantoprazole [Protonix] 40 mg PO DAILY 06/17/16 04/04/17 History Allopurinol [Zyloprim] 300 mg PO DAILY 02/12/17 04/04/17 History Prochlorperazine [Compazine] 10 mg PO Q8H PRN 02/12/17 04/04/17 History Ibuprofen [Motrin] 600 mg PO Q6HR PRN 04/04/17 04/04/17 History amLODIPine [Norvasc] 10 mg PO DAILY 04/04/17 04/04/17 History traMADol HCL [Ultram] 50 mg PO Q4HR PRN 04/04/17 04/04/17 History Allergies Allergy/AdvReac Type Severity Reaction Status Date / Time adhesive tape Allergy Rash/Hives Verified 04/04/17 08:23 pneumococcal vaccine AdvReac Swelling Verified 04/04/17 08:23 Physical Exam Vitals: Vital Signs Temp Pulse Resp BP Pulse Ox 04/04/17 08:37 97.5 F L 79 16 151/80 93 L Intake and Output 04/03/17 04/04/17 04/04/17 22:59 06:59 14:59 Other: Voiding Method Toilet Urinal - Constitutional General appearance: average body habitus, cooperative, no acute distress - EENT Eyes: anicteric sclerae, EOMI, PERRLA, normal appearance ENT: hearing grossly normal, normal oropharynx - Neck Neck: no lymphadenopathy - Respiratory Respiratory: bilateral: CTA - Cardiovascular Rhythm: regular Heart sounds: normal: S1, S2 Abnormal Heart Sounds: no systolic murmur, no diastolic murmur, no rub, no S3 Gallop, no S4 Gallop, no click, no other leg Peripheral Edema: right: Trace, left: 2+, Pitting - Gastrointestinal General gastrointestinal: no absent bowel sounds, no decreased bowel sounds, no distended, no hepatomegaly, no hyperactive bowel sounds, normal bowel sounds, no organomegaly, no rigid, no scaphoid, soft, no splenomegaly, no tenderness, no umbilical hernia, no ventral hernia - Integumentary Integumentary: normal - Neurologic Pt has to concentrate to release hand grasp on the left, he had to concentrate to stop plantar flexion of left foot. Neurologic: CNII-XII intact - Musculoskeletal weakness limited to left arm and leg Musculoskeletal: left sided weakness - Psychiatric Psychiatric: A&O x's 3, appropriate affect, intact judgment & insight Results CBC & Chem 7: 04/04/17 14:23 04/04/17 14:23 Labs: Abnormal Lab Results - Last 24 Hours (Table) 04/04/17 04/04/17 04/04/17 Range/Units 09:18 09:18 12:41 RBC 4.21 L (4.30-5.90) m/uL Hgb 11.2 L (13.0-17.5) gm/dL Hct 36.8 L (39.0-53.0) % MCHC 30.3 L (31.0-37.0) g/dL RDW 19.7 H (11.5-15.5) % Neutrophils # 7.8 H (1.3-7.7) k/uL Glucose 101 H (74-99) mg/dL POC Glucose (mg/dL) 163 H (75-99) mg/dL Total Protein 5.6 L (6.3-8.2) g/dL Albumin 3.3 L (3.5-5.0) g/dL Thrombosis Risk Factor Assmnt - Choose All That Apply Any of the Below Risk Factors Present?: Yes Each Factor Represents 1 point: Abnormal pulmonary function (COPD), Obesity ( BMI >25) Other Risk Factors: Yes Each Risk Factor Represents 2 Points: Patient confined to bed Each Risk Factor Represents 3 Points: Age 75 years or older Other congenital or acquired thrombophilia - If yes, enter type in comment: No Thrombosis Risk Factor Assessment Total Risk Factor Score: 7 Thrombosis Risk Factor Assessment Level: High Risk Assessment and Plan (1) Left-sided weakness Narrative/Plan: CT brain (MRI could not be done due to type of ventricular shunt pt has) ordered for evaluation of weakness, Neurology consulted. Current Visit: Yes Status: Acute Priority: High Code(s): R53.1 - WEAKNESS SNOMED Code(s): 578216492 (2) Non-Hodgkin lymphoma Narrative/Plan: Hold start of chemo until left sided weakness evaluated. PICC line has been ordered to be placed for chemo administration. The orders were reviewed, supportive meds and labs are ordered. Current Visit: Yes Status: Acute Priority: High Code(s): C85.90 - NON- HODGKIN LYMPHOMA, UNSPECIFIED, UNSPECIFIED SITE SNOMED Code(s): 730573111 (3) Pleural effusion Current Visit: No Status: Acute Priority: Medium Code(s): J90 - PLEURAL EFFUSION, NOT ELSEWHERE CLASSIFIED SNOMED Code(s): 36407744
--- NOTE | 2017-04-04 13:12 | CT ---
EXAMINATION TYPE: CODE STROKE: CT brain wo contrast DATE OF EXAM: 04/04/2017 COMPARISON: NONE HISTORY: 81-year-old male Left sided weakness. TECHNIQUE: Examination was done in axial plane without intravenous contrast. Coronal and sagittal r econstructions performed. CT DLP: 1000 mGycm Automated exposure control for dose reduction was used. FINDINGS: There is no evidence of acute intracranial hemorrhage, acute ischemic changes, mass, mass-effect, or extra-axial fluid collection. There is no effacement of cerebral sulci or basal subarachnoid cister ns. There is no hydrocephalus. There is no midline shift. Dangelo-white matter distinction is preserv ed. Right-sided STEWARD RACETRACK shunt catheter with tip at the lateral margin of the right lateral ventricle. There are confluent white matter hypodensities in both cerebral hemispheres with encephalomalacia law ng the right anterior cerebral middle cerebral artery territory junction. Old bilateral basal ganglio emily and right thalamic lacunar infarcts. Paranasal sinuses and mastoid air cells appear well-pneumatized. IMPRESSION: Confluent changes of chronic small vessel ischemic disease. Findings suggest old right-sided watershe d infarct with encephalomalacia. No definite acute intracranial abnormality seen. If symptoms persist , consider follow-up MRI. Right-sided STEWARD RACETRACK shunt catheter without hydrocephalus.
[2017-04-04 13:23] LABS: Glucose,Whole Blood 162 mg/dL (75-99)
[2017-04-04] MEDS: ONDANSETRON 4 MG/2 ML VIAL IVP PRN ×2 (13:59→19:34)
[2017-04-04] MEDS ORDERED: CLOPIDOGREL 75 MG TAB PO SCH (14:00)
--- NOTE | 2017-04-04 14:01 | CT ---
EXAMINATION TYPE: CODE STROKE: CTA head neck DATE OF EXAM: 04/04/2017 COMPARISON: CT head same day HISTORY: 81-year-old male with left sided weakness, pt has Non Hodgkin's lymphoma TECHNIQUE: Contiguous axial scanning of the head and neck performed with IV Contrast, patient injecte d with 65 mL of Omnipaque 350. Coronal/sagittal MIP reconstructions performed. 3-D reconstructions ge nerated on a dedicated independent workstation. CT DLP: 384.2 mGycm Automated exposure control for dose reduction was used. FINDINGS: Head: The vertebral and basilar arteries as well as the internal carotid arteries show no evidence for occl usion. There is moderate atherosclerotic narrowing within the bilateral carotid siphons. No aneurysma l change is seen. NECK: Moderate atherosclerotic arch calcifications. Arch vessel origins are patent. There is conventional a [facility] vessel branching anatomy. Tortuous proximal common carotid arteries as well as proximal internal carotid arteries. Lult-li-aogdhnuk atherosclerotic change at the bilateral carotid bifurcations. There is mild, approximately 40% narrowing at the proximal right internal carotid artery at the upper bulb level. The left internal carotid artery is widely patent. The vertebral artery origins are patent and the vessels are patent throughout their course. IMPRESSION: 1. HEAD: NO LARGE VESSEL INTRACRANIAL OCCLUSION. 2. NECK: MILD (APPROXIMATELY 40%) PROXIMAL RIGHT ICA STENOSIS. NO HEMODYNAMICALLY SIGNIFICANT STENOSI S APPRECIATED IN EITHER INTERNAL CAROTID ARTERY.
[2017-04-04 14:42] LABS: Anisocytosis Slight; Basophils # (A) 0.1 k/uL (0-0.2); Basophils % (A) 0 %; Eosinophils # (A) 0.1 k/uL (0-0.7); Eosinophils % (A) 1 %; HCT 35.4 % (39.0-53.0); HGB 10.9 gm/dL (13.0-17.5); Hypochromasia Moderate; Lymphocytes # (A) 0.9 k/uL (1.0-4.8); Lymphocytes % (A) 8 %; MCH 26.7 pg (25.0-35.0); MCHC 30.9 g/dL (31.0-37.0); MCV 86.4 fL (80.0-100.0); Mean Platelet Volume 7.7; Monocytes # (A) 0.6 k/uL (0-1.0); Monocytes % (A) 5 %; Neutrophils # (A) 10.1 k/uL (1.3-7.7); Neutrophils % (A) 85 %; Platelet Count 392 k/uL (150-450); RBC 4.09 m/uL (4.30-5.90); RDW 19.3 % (11.5-15.5); WBC 11.8 k/uL (3.8-10.6)
[2017-04-04 14:47] LABS: INR 1.1 (<1.2); Partial Thromboplastin Time 22.2 sec (22.0-30.0); Prothrombin Time 10.4 sec (9.0-12.0)
--- NOTE | 2017-04-04 14:48 | US ---
EXAMINATION TYPE: US venous doppler duplex LE LT DATE OF EXAM: 04/04/2017 2:36 PM COMPARISON: NONE CLINICAL HISTORY: swelling. SIDE PERFORMED: Left TECHNIQUE: The lower extremity deep venous system is examined utilizing real time linear array sonog can with graded compression, doppler sonography and color-flow sonography. VESSELS IMAGED: External Iliac Vein (EIV) Common Femoral Vein Deep Femoral Vein Greater Saphenous Vein * Femoral Vein Popliteal Vein Small Saphenous Vein * Proximal Calf Veins (* superficial vessels) Grayscale, color doppler, spectral doppler imaging performed of the deep veins of the lower extremity . There is normal flow, compressibility, vascular waveforms. IMPRESSION: Left Leg: Negative for DVT
[2017-04-04 14:53] LABS: ALT 34 U/L (21-72); AST 20 U/L (17-59); Albumin 2.9 g/dL (3.5-5.0); Alkaline Phosphatase 95 U/L (38-126); Anion Gap 9 mmol/L; Blood Urea Nitrogen 16 mg/dL (9-20); Calcium 8.7 mg/dL (8.4-10.2); Carbon Dioxide 25 mmol/L (22-30); Chloride 104 mmol/L (98-107); Cholesterol 213 mg/dL (<200); Glucose 151 mg/dL (74-99); HDL Cholesterol 36 mg/dL (40-60); LDL Cholesterol,Calculated 148 mg/dL (0-99); Phosphorus 3.2 mg/dL (2.5-4.5); Potassium 3.6 mmol/L (3.5-5.1); Sodium 138 mmol/L (137-145); Total Bilirubin 0.2 mg/dL (0.2-1.3); Total Protein 5.1 g/dL (6.3-8.2); Triglycerides 146 mg/dL (<150); Uric Acid 7.9 mg/dL (3.5-8.5)
--- NOTE | 2017-04-04 15:11 | CDI ---
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 Please respond to the clarification below the line at the bottom and electronically sign. The CDI & [facility] Coding staff will review the response and follow-up if needed. Please note: Queries are made part of the Legal Health Record. If you have any questions, please contact the author of this message via ITS. Dr. Chriss Herrera/Abigail Warner DELIMBER OPERATOR-C [id number] lymphoma Large B cell not in remission is documented in your H/P Patient history/risk factors: COPD, CVA/TIA, Hypertension, Thyroid Disorder, hydrocephalus with APPRAISER LAND shunt, Former smoker Clinical Indicators: Present for CIVI chemotherapy for NHL Vital Signs: 151/80 79 16 97.5 93 % RA Treatment: Carboplatin IV Etoposide IV Ifosfamide IV Solu-Medrol IV Monitor Labs In your professional opinion, can you please further clarify Non-Hodgkin's Lymphoma site? Lymph nodes Spleen Bone marrow Thymus Adenoids and tonsils Digestive tract Other, please specify Unable to determine Please continue to document in your progress notes and discharge summary in order to capture severity of illness and risk of mortality. Include clinical findings that support your diagnosis. MTDD
[2017-04-04 15:20] LABS: Troponin I 0.041 ng/mL (0.000-0.034)
[2017-04-04] MEDS: ACYCLOVIR 200 MG CAP PO SCH (17:25)
[2017-04-04] MEDS: ALLOPURINOL 300 MG TAB PO SCH (17:25)
--- NOTE | 2017-04-04 20:08 | MR ---
EXAMINATION TYPE: MR brain wo/w con DATE OF EXAM: 04/04/2017 COMPARISON: NONE HISTORY: Lt sided weakness, stroke. History non-Hodgkin's lymphoma. TECHNIQUE: Multiplanar, multisequence images of the brain and brainstem is performed without and with IV contras t, utilizing 10 mL intravenous Gadavist . FINDINGS: Diffusion weighted images demonstrate no evidence of a recent infarct or other diffusion abnormality. However, there is diffuse abnormal gadolinium enhancement of the pachymeninges, with two space-occupy ing intra-axial contrast-enhancing lesions centered at the jordan-white matter junction, one within the anterior frontal lobe and the other high over the convexity in the posterior parasagittal right fron dayo lobe. This latter is enhancing intra-axial lesion over the convexity measures 2.5 cm in greatest dimension and is associated with a 6 x 4 x 4 cm zone of vasogenic edema. The anterior frontal pole co ntrast enhancing intra-axial lesion measures 2.5 cm and is associated with a 4 cm diameter zone of va sogenic edema. There is no midline shift of structures; the basal cisterns are intact; no ventriculomegaly. 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 There ar e confluent white matter T2 hyperintensities in both cerebral hemispheres with encephalomalacia along the right anterior cerebral middle cerebral artery territory junction, and there are remote bilatera l basal ganglionic and right thalamic lacunar infarcts. IMPRESSION: 1. NEGATIVE FOR ACUTE OR SUBACUTE INFARCTION. 2. DIFFUSE PACHYMENINGEAL CONTRAST-ENHANCEMENT, LIKELY NEOPLASTIC. 3. TWO LARGE SPACE-OCCUPYING LESIONS IN THE RIGHT FRONTAL LOBE, CONSISTENT WITH NEOPLASM UNTIL PROVEN OTHERWISE, BUT DIFFERENTIAL DIAGNOSIS INCLUDES INFECTION.
[2017-04-04] MEDS ORDERED: DEXAMETHASONE SOD PHOSPHATE 10 MG/ML 1 ML VIAL IV ONE (21:00)
[2017-04-04] MEDS ORDERED: diphenhydrAMINE 50 MG/ML 1 ML VIAL IVP ONE (21:00)
[2017-04-04] MEDS ORDERED: methylPREDNISolone SOD SUCCI 125 MG/2 ML VIAL IVP ONE (21:00)
[2017-04-04] MEDS ORDERED: ACETAMINOPHEN TAB 325 MG TAB PO ONE (21:00)
[2017-04-04] MEDS ORDERED: ONDANSETRON 16 MG in SODIUM CHLORIDE 0.9% 50 ML IVPB SCH (21:00)
[2017-04-04] MEDS ORDERED: riTUXimab 800 MG in SODIUM CHLORIDE 0.9% 500 ML IV NR (21:00)
[2017-04-04] MEDS ORDERED: ETOPOSIDE 200 MG in SODIUM CHLORIDE 0.9% 500 ML IV SCH (21:00)
[2017-04-04] MEDS ORDERED: FAMOTIDINE 20 MG/2 ML VIAL IVP SCH (21:00)
[2017-04-04] MEDS: DEXAMETHASONE SOD PHOSPHATE 10 MG/ML 1 ML VIAL IV SCH (23:52)
[2017-04-05 04:44] LABS: Anisocytosis Slight; Basophils % (A) 0 %; Eosinophils % (A) 0 %; HCT 32.3 % (39.0-53.0); HGB 10.1 gm/dL (13.0-17.5); Hypochromasia Moderate; Lymphocytes # (A) 0.7 k/uL (1.0-4.8); Lymphocytes % (A) 9 %; MCH 26.9 pg (25.0-35.0); MCHC 31.4 g/dL (31.0-37.0); MCV 85.7 fL (80.0-100.0); Mean Platelet Volume 7.8; Monocytes # (A) 0.1 k/uL (0-1.0); Monocytes % (A) 1 %; Neutrophils # (A) 6.4 k/uL (1.3-7.7); Neutrophils % (A) 89 %; Platelet Count 376 k/uL (150-450); RBC 3.77 m/uL (4.30-5.90); RDW 19.1 % (11.5-15.5); WBC 7.2 k/uL (3.8-10.6)
[2017-04-05 04:58] LABS: ALT 27 U/L (21-72); AST 17 U/L (17-59); Albumin 2.6 g/dL (3.5-5.0); Alkaline Phosphatase 79 U/L (38-126); Anion Gap 8 mmol/L; Blood Urea Nitrogen 15 mg/dL (9-20); Calcium 8.8 mg/dL (8.4-10.2); Carbon Dioxide 23 mmol/L (22-30); Chloride 105 mmol/L (98-107); Glucose 157 mg/dL (74-99); Potassium 4.5 mmol/L (3.5-5.1); Sodium 136 mmol/L (137-145); Total Bilirubin <0.1 mg/dL (0.2-1.3); Total Protein 4.7 g/dL (6.3-8.2)
[2017-04-05] MEDS: DEXAMETHASONE SOD PHOSPHATE 10 MG/ML 1 ML VIAL IV SCH ×2 (05:45→11:13)
[2017-04-05] MEDS ORDERED: DEXAMETHASONE SOD PHOSPHATE 4 MG/ML 1 ML VIAL IM SCH (06:00)
--- NOTE | 2017-04-05 09:16 | CONS ---
CONSULTATION DATE OF CONSULTATION: 04/04/2017. CHIEF COMPLAINT: Left-sided weakness. HISTORY OF PRESENT ILLNESS: Mr. Jacome is a pleasant 81-year-old, male, who is being evaluated by the neurology service per the request of Dr. Herrera for left-sided weakness. The patient was recently diagnosed with B-cell lymphoma and had arrived to the hospital for scheduled chemotherapy. He was noticed to have left-sided weakness, which he states began approximately 10 days ago but he did not seek medical attention for that. He was admitted to the hospital for further evaluation and soon after admission, he had an episode of expressive aphasia which lasted several minutes and resolved spontaneously. A stat CT scan of the brain was done, which showed evidence of old infarct involving the right watershed area along with hypoattenuation in bilateral basal ganglia and right thalamus. Small-vessel ischemic changes were also seen. His ADJUTANT GENERAL shunt was also visualized. He does have a previous history of hydrocephalus. His CBC showed mild anemia with a hemoglobin of 11.2 and hematocrit of 36% and his comprehensive metabolic profile was normal except for low protein and albumin at 5.6 and 3.3 respectively. His INR was normal. At the time of my evaluation, the patient is lying in his bed in the intensive care unit. He is still complaining of left-sided weakness, but denies any speech difficulties. The patient is eating without any difficulty with swallowing. He did have a CT angiogram of the neck which showed no hemodynamically significant stenosis. PAST MEDICAL HISTORY: B-cell lymphoma, gastroesophageal reflux disease, history of stroke, chronic obstructive pulmonary disease, dyslipidemia, hypertension, history of myocardial infarction, hypothyroidism, hydrocephalus with ADJUTANT GENERAL shunt placement, gout, history of hernia repair. SOCIAL HISTORY: The patient is a former smoker. He occasionally drinks alcohol. He denied any drug use. FAMILY HISTORY: Positive for liver disease and cancer. HOME MEDICATIONS: Reviewed in the chart. ALLERGIES: PNEUMOCOCCAL VACCINE and ADHESIVE TAPE. REVIEW OF SYSTEMS: CONSTITUTIONAL: Positive for fatigue. EYES: Positive for chronic diminished vision. ENT: Positive for chronic diminished hearing. CARDIOVASCULAR: As mentioned above. RESPIRATORY: Positive for occasional shortness of breath. NEUROLOGICAL: As mentioned above. GASTROINTESTINAL: Positive for occasional heartburn. GENITOURINARY: Negative. PSYCHIATRIC: Negative. ENDOCRINE: Positive for hypothyroidism. MUSCULOSKELETAL: Positive for occasional joint pain. DERMATOLOGICAL: Negative. PHYSICAL EXAM: Vital signs show a temperature of 97.5, pulse 79, respiration 16, blood pressure 151/80. GENERAL APPEARANCE: The patient is a well-developed, elderly male, who appears to be in no acute distress. HEENT: Normocephalic, atraumatic, slight left facial drooping is seen. NECK: Supple with no masses felt. CARDIOVASCULAR: Regular rate and rhythm. ABDOMEN: Nontender, nondistended. Extremities showed trace edema with no clubbing seen. NEUROLOGICAL EXAM: The patient is awake and oriented x3. Speech and language are normal. Strength is 4/5 on the left upper extremity and 5 minus out of 5 elsewhere. Slight pronator drift is seen on the left upper extremity. Sensory exam was normal to light touch in all 4 extremities. Cranial nerve testing showed slight left facial drooping. No seizure-like activity is seen. IMPRESSION: 1. Left hemiparesis. 2. Expressive aphasia, resolved. 3. History of B-cell lymphoma. 4. History of ischemic strokes. 5. History of hydrocephalus. RECOMMENDATION: The patient has been having left-sided weakness for approximately 10 days now. Although an ischemic stroke needs to be ruled out, there is significant concern for possible intracranial neoplastic etiology given his history of B-cell lymphoma. An MRI of the brain has been ordered with and without contrast. From a stroke standpoint, the patient is already on Plavix [address] angiogram of the neck showed no hemodynamically significant stenosis. I will order a fasting lipid panel, EEG, and serum homocystine level. I will order a transesophageal echocardiogram to rule out any intracardiac thrombus. I will start him on Lovenox for DVT prophylaxis and Protonix for GI prophylaxis. Physical Therapy and Occupational Therapy will be consulted. Prognosis is guarded. I will continue to follow with you. Further recommendations to follow. Thank you for allowing me to participate in the care of your patient. If you have any questions, please feel free to contact me. MMODL / IJN: [id number] /
--- NOTE | 2017-04-05 09:43 | CONS ---
CONSULTATION DATE OF CONSULTATION: 04/04/2017. REASON FOR CONSULTATION: Advice regarding weakness and multiple medical issues requested by Hematology/ Oncology. 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 The patient also history of COPD, hypertension, hyperlipidemia. The patient has been followed by Dr. Day in the outpatient setting. Today the patient was admitted for chemotherapy, but today the patient had weakness of the left side of the body and the patient previously had right-sided stroke causing left-sided weakness. Because of increasing confusion, stroke team was called and the patient is transferred to ICU. A brain MRI done earlier today showed negative for any infarction, diffuse parenchymal contrast, enhancing contrast, neoplastic two large space occupying lesions in the right frontal lobe was consistent with neoplasm was also noted and the patient started on Decadron also. The patient is slightly drowsy, unable to give coherent history patient significant weakness on the left upper and lower limb, which is rather new at this time. PAST MEDICAL HISTORY: History of non-Hodgkin's lymphoma, history of CVA, TIA, history of COPD, history hypertension, hyperlipidemia, myocardial infarction. MEDICATIONS: Prior to admission include home medications are: 1. Ultram 50 mg q.4h p.r.n. 2. Norvasc 10 mg p.o. daily. 3. Compazine 10 mg q.8h p.r.n. 4. Protonix 40 mg daily. 5. Synthroid 100 mcg. 6. Motrin 600 mg q.8h p.r.n. 7. Fenofibrate 40 mg. 8. Plavix 75 mg daily. 9. Lipitor 40 mg q.h.s. 10.Zyloprim 300 mg daily. ALLERGIES: ADHESIVE TAPES AND PNEUMOCOCCAL VACCINE. FAMILY HISTORY: History of liver disease and uterine cancer. SOCIAL HISTORY: Previous history of smoking. No history alcohol intake. REVIEW OF SYSTEMS: Could not be taken at length because of the patient's change in mental status and dysarthria and other associated neurological findings. PHYSICAL EXAMINATION: Pulse is 70, blood pressure 130/62, respiration 24, temperature 97.6, pulse ox 98% on 3 L nasal cannula. HEENT is conjunctivae normal. Oral mucosa moist. Neck is no jugular venous distention. No carotid bruit. No lymph node enlargement. Cardiovascular system: S1, S2 muffled. No S3, no S4. Respiratory: Breath sounds diminished in the bases. A few scattered rhonchi and crackles. ABDOMEN: Soft, nontender. No mass palpable. Legs no edema and no swelling. NERVOUS SYSTEM: Higher functions as mentioned earlier. Cranial 2nd thru 12, minimal facial flattening on the left side. Otherwise significant weakness of the left upper limb grade 0. Grade 1 power in the left lower limb. Otherwise the patient able to move right side given the minimal weakness appreciated otherwise. SKIN: No ulcer, rash, bleeding. Lymphatics: No lymph nodes palpable in the neck, axillae or groin. Joints: No active deforming arthropathy. LABORATORY DATA: WBC 11.2, hemoglobin 10.9 and troponin 0.041 and cholesterol 213 and LDL is 148. ASSESSMENT: 1. Weakness of the left side of the body, possibly neoplastic secondary to neoplastic lesions and progression. 2. Non-Hodgkin lymphoma. 3. History of bilateral pleural effusion. 4. History of abdominal distention and ventral hernia. 5. Hyperlipidemia. 6. Increased WBC. 7. 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 8. Chronic obstructive pulmonary disease. 9. History of cerebrovascular accident /old previous stroke in the right temporoparietal watershed area causing old left weakness. 10.Gastroesophageal reflux disease. 11.Hypertension. 12.Hyperlipidemia. 13.History of hypothyroidism. 14.History of transient ischemic attacks. 15.FULL CODE. RECOMMENDATIONS AND DISCUSSION: In this 81-year-old gentleman who presented with multiple complex medical issues , we will monitor the patient closely, continue the current medications, management and symptomatic treatment. Otherwise, at this time I recommend continue , monitor blood sugars closely. Repeat labs. Monitor fluid and electrolytes balance closely. Stroke is unlikely. Overall prognosis is extremely guarded. Patient currently FULL CODE. We will address the code status along with Hematology/Oncology. The CT scan and angio was also noted and no evidence of any acute stroke or thrombus. Once again, the prognosis guarded. Further recommendations to follow. See orders for details. MMODL / IJN: [id number] / MTDD
[2017-04-05] MEDS: ALLOPURINOL 300 MG TAB PO SCH (10:39)
[2017-04-05] MEDS: PANTOPRAZOLE 40 MG/10 ML VIAL IVP SCH (10:39)
[2017-04-05] MEDS: ACYCLOVIR 200 MG CAP PO SCH (10:39)
[2017-04-05] MEDS: ENOXAPARIN 40 MG/0.4 ML SYRINGE SQ SCH (10:40)
--- NOTE | 2017-04-05 16:40 | P.PN ---
Subjective Progress Note Date: 04/05/17 Principal diagnosis: NHL, multiple sites, without remission P seen today in the ICU, he feels better, speech is clearer, he has limited strength in his left arm and leg. Denies nausea, HOLLEY or pain. Objective - Vital Signs Vital signs: Vital Signs Temp 97.4 F L 04/05/17 16:03 Pulse 78 04/05/17 16:03 Resp 18 04/05/17 16:03 BP 135/62 04/05/17 16:03 Pulse Ox 96 04/05/17 16:03 Intake & Output 04/04/17 04/05/17 04/05/17 18:59 06:59 18:59 Intake Total 275 250 450 Output Total 425 200 600 Balance -150 50 -150 Weight 94.3 kg 94.3 kg Intake: IV 75 450 NS 75 450 Oral 200 250 Output: Urine 425 200 600 Other: Voiding Method Urinal Urinal Urinal Incontinent # Voids 1 1 1 # Bowel Movements 1 - Constitutional General appearance: Present: average body habitus, cooperative, no acute distress - EENT Eyes: Present: anicteric sclerae, EOMI - Respiratory Details: mildly labored respirations - Cardiovascular Heart sounds: normal: S1, S2 - Integumentary Integumentary: Present: pale - Musculoskeletal Musculoskeletal: Present: left sided weakness - Psychiatric Psychiatric: Present: A&O x's 3, appropriate affect, intact judgment & insight - Labs CBC & Chem 7: 04/05/17 04:12 04/05/17 04:12 Labs: Abnormal Lab Results - Last 24 Hours (Table) 04/05/17 04/05/17 Range/Units 04:12 04:12 RBC 3.77 L (4.30-5.90) m/uL Hgb 10.1 L (13.0-17.5) gm/dL Hct 32.3 L (39.0-53.0) % RDW 19.1 H (11.5-15.5) % Lymphocytes # 0.7 L (1.0-4.8) k/uL Sodium 136 L (137-145) mmol/L Glucose 157 H (74-99) mg/dL Total Bilirubin <0.1 L (0.2-1.3) mg/dL Total Protein 4.7 L (6.3-8.2) g/dL Albumin 2.6 L (3.5-5.0) g/dL - Imaging and Cardiology CT Scan - head: report reviewed Assessment and Plan (1) Left-sided weakness Narrative/Plan: MRI of the head describes enhancement that is indicative of EXERCISE RIDER mets. Pt has been started on steroids with some improvement in his neurological symptoms. Current Visit: Yes Status: Acute Priority: High Code(s): R53.1 - WEAKNESS SNOMED Code(s): 652877271 (2) Non-Hodgkin lymphoma Narrative/Plan: We reviewed MRI findings showing EXERCISE RIDER metastasis with pt, he seemed to have a clear understanding of what was found. Dr. Herrera had previously discussed with pt and his daughter that he had concerns that chemotherapy for his progressive systemic disease was a high risk due to pt poor performance status and comorbid conditions. Pt was willing to give it a try and that is was admitted. Now, that there is EXERCISE RIDER involvement pt's case is more complicated. Treating both systemic disease as well as the EXERCISE RIDER would likely prove to be too much for the pt to handle and may even be fatal, not to mention the pt has a magnetic ventricular shunt which was investigated and that would require Neurosurgeon to turn the shunt off prior to intrathecal chemo then it would have to be turned back on-further complicating access to treatment. Pt seemed to understand the risks and wanted to talk to his daughter. Dr. Herrera contacted pt daughter and at this time she would like to have an informational meeting with her father and hospice then, they would let us know their thoughts and how they would like to proceed. No further work up at this time. Chemotherapy has been cancelled for now Current Visit: Yes Status: Acute Priority: High Code(s): C85.90 - NON- HODGKIN LYMPHOMA, UNSPECIFIED, UNSPECIFIED SITE SNOMED Code(s): 239134991 (3) Pleural effusion Narrative/Plan: Case discussed with Pulmonary, not felt to be progressive, respiratory status is stable at this time. Current Visit: No Status: Chronic Priority: Medium Code(s): J90 - PLEURAL EFFUSION, NOT ELSEWHERE CLASSIFIED SNOMED Code(s): 57778789
[2017-04-05] MEDS: SODIUM CHLORIDE 0.9% 1,000 ML IV SCH (17:04)
[2017-04-05] MEDS ORDERED: traMADol 50 MG TAB PO PRN (17:26)
--- NOTE | 2017-04-05 19:04 | EEG ---
ELECTROENCEPHALOGRAM REPORT DATE OF SERVICE: 04/05/2017 REASON FOR TESTING: Stroke. DESCRIPTION OF THE PROCEDURE: This EEG was performed using a 21-channel digital electroencephalograph, following international 10-20 system. DESCRIPTION OF THE RECORDING: From the beginning of the tracing, and with patient's eyes closed, the background rhythm was mostly consisting of 8 Hz alpha frequency in the posterior occipital leads. No obvious asymmetry is seen. Frequent movement artifacts are seen. Photic stimulation was performed with a good driving response seen. No pathological waves were elicited. Hyperventilation was not performed. The patient remains awake throughout the tracing. No epileptiform discharges were seen. His EKG lead showed a regular rate and rhythm. INTERPRETATION: This awake EEG can be considered within normal limits. There was no asymmetry seen. No epileptiform discharges were noticed. The absence of epileptiform discharges does not rule out the diagnosis of epilepsy; therefore clinical correlation is recommended. MMBRISSA / CARIN: [id number] /
[2017-04-05] MEDS: ATORVASTATIN 40 MG TAB PO SCH (19:21)
--- NOTE | 2017-04-05 19:34 | PN ---
PROGRESS NOTE DATE OF SERVICE: 04/05/2017 This 81-year-old gentleman who was admitted with weakness of the left side of the body was found to have multiple intracranial lesions with cerebral edema. The patient has history of previous stroke. The patient also has non-Hodgkin lymphoma. Patient is started on Decadron. The patient is slightly more alert compared to yesterday. PAST MEDICAL HISTORY: Reviewed. REVIEW OF SYSTEMS: CARDIOVASCULAR: As mentioned earlier. RESPIRATORY: As mentioned earlier. NERVOUS: As mentioned earlier. CURRENT MEDICATIONS: Reviewed, include: 1. Zovirax 400 mg. Other medications are:. 2. Lovenox daily. 3. Protonix 40 mg daily. PHYSICAL EXAM: Patient is alert, oriented x2. Pulse 72, blood pressure 130/60 respirations 18, temperature 97.2, pulse ox 97% on 4L. HEENT: Conjunctivae normal. NECK: No jugular venous distention. CARDIOVASCULAR: S1, S2 muffled. RESPIRATORY: Breath sounds diminished in the bases. A few scattered rhonchi. No crackles. ABDOMEN: Soft, nontender. LEGS: No edema. No swelling. NERVOUS SYSTEM: Higher functions as mentioned earlier. Moves all 4 limbs. No focal deficits. Significant weakness on the left side present. LYMPHATIC: No lymphadenopathy in neck or axillae. SKIN: No ulcer, rash or bleeding. LABS: WBC 7.4, hemoglobin 10.9. Sodium 136. ASSESSMENT: 1. Weakness of the left side of the body with neoplastic lesions in the brain, possibly secondary non-Hodgkin lymphoma with progression. 2. Non-Hodgkin lymphoma. 3. History of bilateral pleural effusion. 4. History of old watershed infarction in the right parietal area with a resulting left-sided weakness previously. 5. History of abdominal distention, ventral hernia. 6. History of bilateral pleural effusions. 7. Hyperlipidemia. 8. Increased WBC. 9. 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 10.Chronic obstructive pulmonary disease. 11.History of cerebrovascular accident, old previous stroke. 12.Gastroesophageal reflux disease. 13.Hypertension. 14.Hyperlipidemia. 15.History of hypothyroidism. 16.History of transient ischemic attack. 17.FULL CODE. RECOMMENDATIONS AND DISCUSSION: In this 81-year-old gentleman who presented with multiple complex medical issues, will monitor the patient closely. Continue the current medical management and symptomatic treatment. At this time, the patient and family and contemplating PT OT evaluation, possible ECF rehab. The patient is apparently the caregiver for his , who has significant Parkinson's. I also discussed with Dr. Day, who is the primary physician. I discussed with the family at length. Informational hospice visit, but the family has already discussed at length with Dr. Herrera. Once again, the prognosis guarded because of multiple complex medical issues. Further recommendations to follow. JOHNNY / RODRIGON: [id number] /
[2017-04-05] MEDS ORDERED: CARBOplatin 450 MG in SODIUM CHLORIDE 0.9% 250 ML IV ONE (21:00)
[2017-04-05] MEDS ORDERED: DEXAMETHASONE SOD PHOSPHATE 10 MG/ML 1 ML VIAL IV SCH (21:00)
[2017-04-05] MEDS ORDERED: IFOSFAMIDE 9,000 MG, IFOSFAMIDE 1,000 MG in SODIUM CHLORIDE 0.9% 1,000 ML IV ONE (21:00)
[2017-04-05] MEDS ORDERED: MESNA IV ONE (21:00)
[2017-04-05] MEDS ORDERED: SODIUM CHLORIDE 0.9% IV ONE (21:00)
[2017-04-06] MEDS: LEVOTHYROXINE 100 MCG TAB PO SCH (06:13)
[2017-04-06 08:43] LABS: ALT 24 U/L (21-72); AST 15 U/L (17-59); Albumin 2.5 g/dL (3.5-5.0); Alkaline Phosphatase 69 U/L (38-126); Anion Gap 7 mmol/L; Blood Urea Nitrogen 23 mg/dL (9-20); Calcium 8.6 mg/dL (8.4-10.2); Carbon Dioxide 21 mmol/L (22-30); Chloride 111 mmol/L (98-107); Glucose 106 mg/dL (74-99); Potassium 4.6 mmol/L (3.5-5.1); Sodium 139 mmol/L (137-145); Total Bilirubin 0.2 mg/dL (0.2-1.3); Total Protein 4.6 g/dL (6.3-8.2)
[2017-04-06 08:47] LABS: Anisocytosis Slight; Basophils % (A) 0 %; Eosinophils % (A) 0 %; HCT 33.3 % (39.0-53.0); HGB 9.8 gm/dL (13.0-17.5); Hypochromasia Moderate; Lymphocytes # (A) 1.1 k/uL (1.0-4.8); Lymphocytes % (A) 7 %; MCH 26.7 pg (25.0-35.0); MCHC 29.5 g/dL (31.0-37.0); MCV 90.3 fL (80.0-100.0); Mean Platelet Volume 7.3; Monocytes # (A) 0.9 k/uL (0-1.0); Monocytes % (A) 5 %; Neutrophils # (A) 14.2 k/uL (1.3-7.7); Neutrophils % (A) 87 %; Platelet Count 364 k/uL (150-450); RBC 3.69 m/uL (4.30-5.90); RDW 18.2 % (11.5-15.5); WBC 16.4 k/uL (3.8-10.6)
[2017-04-06] MEDS ORDERED: ALLOPURINOL 300 MG TAB PO SCH (09:00)
[2017-04-06] MEDS: ENOXAPARIN 40 MG/0.4 ML SYRINGE SQ SCH (09:26)
[2017-04-06] MEDS: SODIUM CHLORIDE 0.9% 1,000 ML IV SCH ×2 (09:26→16:21)
[2017-04-06] MEDS: PANTOPRAZOLE 40 MG/10 ML VIAL IVP SCH (09:26)
[2017-04-06] MEDS: amLODIPine 10 MG TAB PO SCH (09:27)
[2017-04-06] MEDS: CLOPIDOGREL 75 MG TAB PO SCH (09:27)
[2017-04-06] MEDS: FENOFIBRATE 54 MG TAB PO SCH (09:27)
--- NOTE | 2017-04-06 17:34 | XR ---
EXAMINATION TYPE: XR chest 2V DATE OF EXAM: 04/06/2017 COMPARISON: NONE INDICATION: ECF placement TECHNIQUE: Frontal and lateral views of the chest are obtained. FINDINGS: The heart size is normal. The pulmonary vasculature is normal. Mild infiltrate is along the right diaphragm. Minimal effusion may be present. Streak atelectasis is likely present. There is some increased density in the left upper lung field. This is a change from D ecember 2017. Consider pneumonia. Previous left basilar plate atelectasis has resolved. Catheter rem ains present transversing the thorax. IMPRESSION: 1. Left upper lobe infiltrate. Correlate for pneumonia. Atelectasis could be considered. This is a ch bill from February 2017. 2. Mild streak atelectasis at the right diaphragm.
--- NOTE | 2017-04-06 17:35 | P.PN ---
Subjective Progress Note Date: 04/06/17 Principal diagnosis: NHL, multiple sites, without remission, new metastatic disease to the brain Pt seen today in follow up, he is A&Ox3, his left arm and leg continue to be weak and uncoordinated but, pt states feeling a little stronger. He denies nausea, respiratory c/o or pain Objective - Vital Signs Vital signs: Vital Signs Temp 97.6 F 04/06/17 15:00 Pulse 64 04/06/17 15:55 Resp 20 04/06/17 15:55 BP 127/60 04/06/17 15:00 Pulse Ox 97 04/06/17 15:00 Intake & Output 04/05/17 04/06/17 04/06/17 18:59 06:59 18:59 Intake Total 450 1190 1350 Output Total 600 500 Balance -005 333 7878 Weight 94.3 kg 94.3 kg Intake: IV 450 NS 450 Intake, IV Titration 600 450 Amount Sodium Chloride 0.9% 1, 600 450 000 ml @ 75 mls/hr IV . [id number] [facility], [facility]–1983 Rx#:[id number] Oral 590 900 Output: Urine 600 500 Other: Voiding Method Urinal Urinal Urinal # Voids 1 2 4 # Bowel Movements 1 - Constitutional General appearance: Present: cooperative, no acute distress, obese - EENT Eyes: Present: anicteric sclerae - Musculoskeletal Musculoskeletal: Present: left sided weakness - Psychiatric Psychiatric Comment(s): pt seems to understand our discussions, answers appropriately, daughter feels he forgets things Psychiatric: Present: A&O x's 3, appropriate affect - Labs CBC & Chem 7: 04/06/17 07:54 04/06/17 07:54 Labs: Abnormal Lab Results - Last 24 Hours (Table) 04/06/17 04/06/17 Range/Units 07:54 07:54 WBC 16.4 H (3.8-10.6) k/uL RBC 3.69 L (4.30-5.90) m/uL Hgb 9.8 L (13.0-17.5) gm/dL Hct 33.3 L (39.0-53.0) % MCHC 29.5 L (31.0-37.0) g/dL RDW 18.2 H (11.5-15.5) % Neutrophils # 14.2 H (1.3-7.7) k/uL Chloride 111 H (98-107) mmol/L Carbon Dioxide 21 L (22-30) mmol/L BUN 23 H (9-20) mg/dL Glucose 106 H (74-99) mg/dL AST 15 L (17-59) U/L Total Protein 4.6 L (6.3-8.2) g/dL Albumin 2.5 L (3.5-5.0) g/dL Assessment and Plan (1) Left-sided weakness Narrative/Plan: Due to metastatic disease, improved with steroids Current Visit: Yes Status: Acute Priority: High Code(s): R53.1 - WEAKNESS SNOMED Code(s): 068532643 (2) Non-Hodgkin lymphoma Narrative/Plan: Recurrent, 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 Herrera met with pt and daughter today. It was agreed upon that pt is not a candidate for any aggressive treatment of lymphoma. With disease further progressing to involve the COMPRESSOR SERVICE TECHNICIAN outcome even with treatment is poor. All questions answered. Plan is for pt to go to [facility] for rehabilitation then transition to hospice. He will be going to facility where he and his can co-habitate as the daughter cannot manage the extensive care required for both of her parents. Case was discussed with Case Management. Code status updated Pt will cont on steroids for symptom management of mets. PPI added for GI prophylaxis
[2017-04-06] MEDS: ATORVASTATIN 40 MG TAB PO SCH (20:16)
--- NOTE | 2017-04-06 22:02 | PN ---
PROGRESS NOTE DATE OF SERVICE: 04/06/2017 This 81-year-old gentleman who was admitted with weakness of the left side of the body was found to have multiple intracranial mass lesions, possibly an progression. The patient is significantly weak on the left side at this time. The patient is scheduled to go to rehab for further monitoring. No chest pain. No palpitations. No fever. PHYSICAL EXAM: Alert and oriented times three. Pulse 64, blood pressure 120/60, respiration 20, temperature 97.6, pulse ox 97% on 2 L. HEENT: Conjunctivae normal. Neck: No jugular venous distention. Cardiovascular: S1 S2 muffled. Respiration: Breath sounds diminished in the bases. No rhonchi and no crackles. ABDOMEN: Soft, nontender. Legs no edema. No swelling. Central nervous system: Diffuse weakness of the left side which is slightly improving at this time. Grade 4 power. LABS: WBC 16.8, hemoglobin is 9.8, and albumin is 2.5. ASSESSMENT: 1. Weakness of the left side of the body with possible neoplastic lesions of the brain, possibly 2nd non-Hodgkin lymphoma with progression. 2. History of non-Hodgkin lymphoma. 3. History of bilateral pleural effusion. 4. History of old watershed infarct in the right parietal area with resulting left- sided weakness previously. 5. History of abdominal distention and ventral hernia. 6. History of bilateral pleural effusion. 7. Hyperlipidemia. 8. Increased WBC. 9. 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 10.Chronic obstructive pulmonary disease. 11.History of cerebrovascular accident and old previous stroke. 12.Gastroesophageal reflux disease. 13.Hypertension. 14.Hyperlipidemia. 15.History of hypothyroidism. 16.History of transient ischemic attack. 17.FULL CODE. RECOMMENDATIONS AND DISCUSSION: Continue current medications, management and symptomatic treatment. Otherwise continue with monitoring. PT, OT evaluation, possible ECF rehab. Discussed with the patient. Discussed with multiple consultants. Guarded prognosis. Further recommendations to follow. MMODL / IJN: [id number] / MTDD
[2017-04-07 02:56] VITALS: TEMP 97.8
[2017-04-07] MEDS: LEVOTHYROXINE 100 MCG TAB PO SCH (06:04)
[2017-04-07] MEDS: PANTOPRAZOLE 40 MG/10 ML VIAL IVP SCH (07:34)
[2017-04-07] MEDS: ENOXAPARIN 40 MG/0.4 ML SYRINGE SQ SCH (07:34)
[2017-04-07] MEDS: amLODIPine 10 MG TAB PO SCH (07:35)
[2017-04-07] MEDS: FENOFIBRATE 54 MG TAB PO SCH (07:35)
[2017-04-07] MEDS: CLOPIDOGREL 75 MG TAB PO SCH (07:35)
[2017-04-07 07:50] VITALS: BP 163/69; PULSE 70
[2017-04-07 08:00] VITALS: RESP 16
[2017-04-07 08:13] LABS: Anisocytosis Slight; Basophils % (A) 0 %; Eosinophils # (A) 0.1 k/uL (0-0.7); Eosinophils % (A) 1 %; HCT 37.5 % (39.0-53.0); HGB 11.6 gm/dL (13.0-17.5); Lymphocytes # (A) 1.1 k/uL (1.0-4.8); Lymphocytes % (A) 8 %; MCH 26.9 pg (25.0-35.0); MCV 86.8 fL (80.0-100.0); Monocytes # (A) 0.9 k/uL (0-1.0); Monocytes % (A) 7 %; Neutrophils # (A) 11.1 k/uL (1.3-7.7); Neutrophils % (A) 83 %; Platelet Count 407 k/uL (150-450); RBC 4.32 m/uL (4.30-5.90); RDW 18.2 % (11.5-15.5); WBC 13.4 k/uL (3.8-10.6)
[2017-04-07 08:33] LABS: ALT 24 U/L (21-72); AST 19 U/L (17-59); Albumin 2.9 g/dL (3.5-5.0); Alkaline Phosphatase 82 U/L (38-126); Anion Gap 8 mmol/L; Blood Urea Nitrogen 20 mg/dL (9-20); Calcium 9.1 mg/dL (8.4-10.2); Carbon Dioxide 28 mmol/L (22-30); Chloride 103 mmol/L (98-107); Glucose 90 mg/dL (74-99); Sodium 139 mmol/L (137-145); Total Bilirubin 0.2 mg/dL (0.2-1.3); Total Protein 5.1 g/dL (6.3-8.2)
[2017-04-07] MEDS: DEXAMETHASONE SOD PHOSPHATE 10 MG/ML 1 ML VIAL IV SCH ×2 (10:16→13:38)
--- NOTE | 2017-04-07 12:25 | P.DS ---
Providers Date of admission: 04/04/17 08:04 Expected date of discharge: 04/07/17 Attending physician: Chriss Herrera Consults: 04/04/17 09:23 Consult Physician Routine Consulting Provider: Sonia Finley Consult Reason/Comments: left sided weakness Do you want consulting provider notified?: Yes 04/04/17 14:45 Consult Physician Routine Consulting Provider: Suni Ospina Consult Reason/Comments: Medical Management Do you want consulting provider notified?: Yes Primary care physician: Briana Day Hospital Course: Final Diagnoses: 1. Weakness of left-sided pain with possible neoplastic lesions of the brain, possibly secondary to non-Hodgkin lymphoma with progression 2. History of non-Hodgkin's syndrome, 3. History of bilateral pleural effusions 4. 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 History of abdominal distention and ventral hernia 6. Hyperlipidemia 7. 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 COPD 9. Gastroesophageal reflux disease 10. Hypertension Hospital course: This is an 81-year-old gentleman admitted initially for chemotherapy. Patient developed weakness of the left side of the body found to have multiple intracranial mass lesions, possibly secondary to non-Hodgkin lymphoma progression. Breathing MRI reported negative for infarction, diffuse parenchymal contrast enhancing contrast neoplastic two large space-occupying lesions in the right frontal lobe consistent with neoplasm .Evaluated by a oncology, neurology. Decadron initiated. Neuro workup completed. Dr. Herrera met with patient and daughter discussing patient is not a candidate for any aggressive treatment of lymphoma. With disease further progressing, prognosis poor. Patient and family have agreed for ECF rehab., then transition to hospice. Patient has been cleared for discharge by all consults. Patient is being discharged to [facility] subacute rehab in a stable condition with guarded prognosis. Physical exam:VSS, cardiovascular S1 and S2 muffled, no edema. respiratory bilateral bases diminished without rhonchi or crackles, abdomen soft nontender positive bowel sounds. SERVICE TECHNICIAN: Diffuse weakness left side, grade 4 power. Alert and oriented 3. The impression and plan of care has been dictated as directed. : I performed a history and examination of this patient, discussed the same with the dictator. I agree with the dictator's note ,documented as a scribe. Any additional findings or plans will be noted. Time taken: 35 minutes Patient Condition at Discharge: Stable Plan - Discharge Summary Discharge Rx Participant: Yes New Discharge Prescriptions: New Dexamethasone 4 mg PO Q8H #90 tablet Continue Clopidogrel Bisulfate [Plavix] 75 mg PO DAILY Atorvastatin [Lipitor] 40 mg PO HS Levothyroxine Sodium [Synthroid] 100 mcg PO DAILY Fenofibrate Nanocrystallized [Fenofibrate] 48 mg PO DAILY Pantoprazole [Protonix] 40 mg PO DAILY Prochlorperazine [Compazine] 10 mg PO Q8H PRN PRN Reason: Nausea And Vomiting Allopurinol [Zyloprim] 300 mg PO DAILY amLODIPine [Norvasc] 10 mg PO DAILY traMADol HCL [Ultram] 50 mg PO Q4HR PRN #20 tablet PRN Reason: Pain Discontinued Ibuprofen [Motrin] 600 mg PO Q6HR PRN PRN Reason: Pain Discharge Medication List Atorvastatin [Lipitor] 40 mg PO HS 06/17/16 [History] Clopidogrel Bisulfate [Plavix] 75 mg PO DAILY 06/17/16 [History] Fenofibrate Nanocrystallized [Fenofibrate] 48 mg PO DAILY 06/17/16 [History] Levothyroxine Sodium [Synthroid] 100 mcg PO DAILY 06/17/16 [History] Pantoprazole [Protonix] 40 mg PO DAILY 06/17/16 [History] Allopurinol [Zyloprim] 300 mg PO DAILY 02/12/17 [History] Prochlorperazine [Compazine] 10 mg PO Q8H PRN 02/12/17 [History] amLODIPine [Norvasc] 10 mg PO DAILY 04/04/17 [History] Dexamethasone 4 mg PO Q8H #90 tablet 04/06/17 [Rx] traMADol HCL [Ultram] 50 mg PO Q4HR PRN #20 tablet 04/07/17 [Rx] Follow up Appointment(s)/Referral(s): Sonia Finley MD [STAFF PHYSICIAN] - 1 Week
--- NOTE | 2017-04-07 13:31 | P.PN ---
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 Objective - Vital Signs Vital signs: Vital Signs Temp 97.8 F 04/07/17 07:00 Pulse 70 04/07/17 07:00 Resp 16 04/07/17 07:49 BP 163/69 04/07/17 07:00 Pulse Ox 96 04/07/17 07:00 Intake & Output 04/06/17 04/07/17 04/07/17 18:59 06:59 18:59 Intake Total 1350 590 Balance 1350 590 Weight 94.3 kg 94.3 kg Intake: Intake, IV Titration 450 Amount Sodium Chloride 0.9% 1, 450 000 ml @ 75 mls/hr IV . [id number] ANA Rx#:[id number] Oral 900 590 Other: Voiding Method Urinal Urinal Urinal Diaper Diaper Incontinent Incontinent # Voids 4 1 1 # Bowel Movements 1 1 - Constitutional General appearance: Present: cooperative, no acute distress, obese - EENT Eyes: Present: anicteric sclerae, EOMI - Respiratory Respiratory: bilateral: diminished - Cardiovascular Heart sounds: normal: S1, S2 Abnormal Heart Sounds: Absent: systolic murmur, diastolic murmur, rub, S3 Gallop , S4 Gallop, click, other - Peripheral edema leg Peripheral Edema: bilateral: None - Musculoskeletal Musculoskeletal: Present: left sided weakness - Psychiatric Psychiatric: Present: A&O x's 3, appropriate affect - Labs CBC & Chem 7: 04/07/17 07:50 04/07/17 07:50 Labs: Abnormal Lab Results - Last 24 Hours (Table) 04/07/17 04/07/17 Range/Units 07:50 07:50 WBC 13.4 H (3.8-10.6) k/uL Hgb 11.6 L (13.0-17.5) gm/dL Hct 37.5 L (39.0-53.0) % RDW 18.2 H (11.5-15.5) % Neutrophils # 11.1 H (1.3-7.7) k/uL Total Protein 5.1 L (6.3-8.2) g/dL Albumin 2.9 L (3.5-5.0) g/dL Assessment and Plan (1) Left-sided weakness Narrative/Plan: Steroids resumed, he will continue on steroids for palliation of POSTAL SUPERVISOR symptoms Current Visit: Yes Status: Acute Priority: High Code(s): R53.1 - WEAKNESS SNOMED Code(s): 230005836 (2) Non-Hodgkin lymphoma Narrative/Plan: No treatment. Plan if for rehab and transition to hospice care Current Visit: Yes Status: Acute Priority: High Code(s): C85.90 - NON- HODGKIN LYMPHOMA, UNSPECIFIED, UNSPECIFIED SITE SNOMED Code(s): 913724405 (3) Pleural effusion Narrative/Plan: Stable, no intervention Current Visit: No Status: Chronic Priority: Medium Code(s): J90 - PLEURAL EFFUSION, NOT ELSEWHERE CLASSIFIED SNOMED Code(s): 82579130 Plan: Reviewed plan of care with pt and daughter today. It was agreed upon pt is not a candidate for treatment of lymphoma and that he will be going to [facility] for rehabilitation then transition to hospice. Steroids will continue for symptom management of mets. PPI ordered Pain meds PRN Pt is going to be discharged today, summary completed by [email or web address]
== END 2017-04-07 14:08 | DRG 846 ==
LOC: 5ONC 08:04 → 6ICU 13:54 → 5ONC 04-05 12:44
PROVIDERS: ADMIT Internal Medicine Hematology & Oncology; ATTEND Internal Medicine Hematology & Oncology
DX: Z51.11 Encounter for antineoplastic chemotherapy (principal); G93.6 Cerebral edema; R18.8 Other ascites; J90 Pleural effusion, not elsewhere classified; C83.38 Diffuse large B-cell lymphoma, lymph nodes of multiple sites; R47.01 Aphasia; I69.354 Hemiplegia and hemiparesis following cerebral infarction affecting left non-dominant side; D63.0 Anemia in neoplastic disease; E03.9 Hypothyroidism, unspecified; E78.5 Hyperlipidemia, unspecified; K21.9 Gastro-esophageal reflux disease without esophagitis; J44.9 Chronic obstructive pulmonary disease, unspecified; I25.2 Old myocardial infarction; I10 Essential (primary) hypertension; H91.90 Unspecified hearing loss, unspecified ear; E07.9 Disorder of thyroid, unspecified; Z98.2 Presence of cerebrospinal fluid drainage device; Z51.5 Encounter for palliative care; Z79.02 Long term (current) use of antithrombotics/antiplatelets; Z79.899 Other long term (current) drug therapy; Z87.891 Personal history of nicotine dependence; Z79.890 Hormone replacement therapy; Z53.8 Procedure and treatment not carried out for other reasons
CPT/HCPCS: 70450; 70496; 70498; 70553; 71046; 80053; 80061; 82550; 82553; 83090; 84100; 84484; 84550; 85025; 85610; 85730; 95819